=== PATIENT | female | born 1970 | race Caucasian/White ===

== ENCOUNTER 2017-12-13 15:48 | Emergency (ER) | payer OTHER ==
--- OUTSIDE RECORDS SUMMARY | 2017-12-13 15:50 | XMS REPORT ---
:1970 Author Organization eClinicalWorks Care Team Providers Name Role Phone Blanchard, [facility] Provider Role Unavailable Allergies, Adverse Reactions, Alerts Substance Reaction Event Type N.K.D.A. Info Not Available Non Drug Allergy Problems Problem Type Condition Code Onset Dates Condition Status Assessment Other chronic pain G89.29 Active Assessment Fibromyalgia M79.7 Active Assessment Low back pain M54.5 Active Problem Fibromyalgia M79.7 Active Problem Hematochezia K92.1 Active Problem Low back pain M54.5 Active Problem Chronic GERD K21.9 Active Problem Bilateral leg paresthesia R20.2 Active Problem Other chronic pain G89.29 Active Problem Urinary incontinence, unspecified R32 Active type Assessment Bilateral leg paresthesia R20.2 Active Assessment Urinary incontinence, unspecified R32 Active type Assessment Hematochezia K92.1 Active Assessment Chronic GERD K21.9 Active Medications Medication Code Code Instructions Start End Date Status Dosage System Date Multivitamin ND 72255787559 - Orally Active not defined BC Headache [facility] 64612769729 325-16-95 MG Active not Orally defined Gabapentin ND 31864631528 100 MG Orally December 05, Active 1 capsule Three times a 2017 day Results No Known Results Summary Purpose eClinicalWorks Submission
[2017-12-13] MEDS ORDERED: LORazepam 2 MG/ML VIAL ONE (16:50)
[2017-12-13 16:51] LABS: Absolute Lymphocytes (CBC) 3.8 K/uL (0.7-4.9); Absolute Monocytes 0.4 K/uL (0.1-1.3); Absolute Neutrophil 6.3 K/uL (1.8-8.0); Basophils % 1.2 % (0-1.3); Eosinophils % 0.3 % (0-4.4); Hematocrit 42.7 % (36.0-45.0); Lymphocytes % 35.8 % (15.3-44.8); MCH 25.2 pg (27.0-35.0); MCV 80.2 fL (80-100); MPV 8.3 fL (7.6-11.3); Monocytes % 3.8 % (3.3-12.3); RBC Red Blood Cell Count 5.32 M/uL (3.86-4.86)
[2017-12-13 16:53] LABS: Protime INR 0.91
--- NOTE | 2017-12-13 16:53 | EKG ---
Test Date: 2017-12-13 Test Time: 16:31:40 Reimbursement Director: MARIAN MEASUREMENT RESULTS: Intervals: Rate: 62 KS: 116 QRSD: 82 QT: 456 QTc: 462 [place]: P: 28 KS: 116 QRS: 64 T: 49 INTERPRETIVE STATEMENTS: Normal sinus rhythm Normal ECG No previous ECG available for comparison Electronically Signed On 12-13-17 16:52:19 CDT by Dane Thao
[2017-12-13 16:57] LABS: Urine Blood NEGATIVE (NEG); Urine Glucose NEGATIVE (NEG); Urine Protein NEGATIVE (NEG); Urine Specific Gravity 1.015 (1.005-1.030); Urine pH 8.5 (5.0-7.0)
[2017-12-13 16:58] LABS: Urine Specific Gravity 1.015 (1.005-1.030)
--- NOTE | 2017-12-13 17:18 | RAD REPORT ---
EXAM DESCRIPTION: RAD - Chest Single View - 12/13/2017 5:03 pm CLINICAL HISTORY: Dyspnea, shortness of breath COMPARISON: None. TECHNIQUE: AP portable chest image was obtained 1649 hours . FINDINGS: Lungs are clear. Heart and vasculature are normal. No measurable pleural effusion and no p neumothorax. No gross bony abnormality seen. No acute aortic findings suspected. IMPRESSION: No acute cardiopulmonary process.
[2017-12-13 17:26] LABS: ALT/SGPT 35 U/L (12-78); AST/SGOT 19 U/L (15-37); Albumin 3.8 g/dL (3.4-5.0); Alkaline Phosphatase 96 U/L (45-117); BUN Blood Urea Nitrogen 7 mg/dL (7-18); Bicarbonate 21 mmol/L (21-32); Bilirubin Direct < 0.1 mg/dL (0-0.2); Bilirubin Total 0.2 mg/dL (0.2-1.0); Glucose Level 89 mg/dL (74-106); NT PRO-BNP 321 pg/mL (<125); Potassium 3.7 mmol/L (3.5-5.1); Protein, Total 7.7 g/dL (6.4-8.2); Sodium Level 141 mmol/L (136-145)
--- NOTE | 2017-12-13 19:10 | EDPHYS ---
Physician Documentation [facility] Name: Edna Hoang Age: 47 yrs Sex: Female : 1970 Arrival Date: 12/13/2017 Time: 15:52 Bed 8 Private MD: ED Physician Kennedy Roy HPI: 12/13 16:42 This 47 yrs old Female presents to ER via EMS with complaints of Shortness Of jr8 Breath, Anxiety. 16:42 The patient has shortness of breath at rest. Onset: The symptoms/episode began/occurred jr8 gradually, 1 year(s) ago. Duration: The symptoms are continuous. The patient's shortness of breath is aggravated by walking, anxiety. Associated signs and symptoms: The patient has no apparent associated signs or symptoms. Severity of symptoms: At their worst the symptoms were moderate in the emergency department the symptoms are unchanged. The patient has experienced similar episodes in the past, several times. The patient has not recently seen a physician. Patient very anxious when questioning her. Stated that she had recent dispute with significant other that landed him in detention. Stated that she suffers from bad anxiety. Has been off of meds for a while. Feels as if she cannot catch breath. Has not seen anyone for problem because she had not had insurance for the longest time. 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 - Social history:: Smoking status: Patient uses tobacco products, smokes one-half pack cigarettes per day. - Ebola Screening: : No symptoms or risks identified at this time. ROS: 16:42 Eyes: Negative for injury, pain, redness, and discharge, ENT: Negative for injury, jr8 pain, and discharge, Neck: Negative for injury, pain, and swelling, Cardiovascular: Negative for chest pain, palpitations, and edema, Abdomen/GI: Negative for abdominal pain, nausea, vomiting, diarrhea, and constipation, Back: Negative for injury and pain, MS/Extremity: Negative for injury and deformity, Skin: Negative for injury, rash, and discoloration, Neuro: Negative for headache, weakness, numbness, tingling, and seizure. 16:42 Respiratory: Positive for dyspnea on exertion, shortness of breath, Negative for cough, hemoptysis, orthopnea, sputum production, wheezing. 16:42 Psych: Positive for anxiety, Negative for depression, drug dependence, alcohol dependence, auditory hallucinations, visual hallucinations, homicidal ideation, insomnia, suicide gesture, suicidal ideation. Exam: 16:53 Eyes: Pupils equal round and reactive to light, extra-ocular motions intact. Lids and jr8 lashes normal. Conjunctiva and sclera are non-icteric and not injected. Cornea within normal limits. Periorbital areas with no swelling, redness, or edema. ENT: Nares patent. No nasal discharge, no septal abnormalities noted. Tympanic membranes are normal and external auditory canals are clear. Oropharynx with no redness, swelling, or masses, exudates, or evidence of obstruction, uvula midline. Mucous membranes moist. Neck: Trachea midline, no thyromegaly or masses palpated, and no cervical lymphadenopathy. Supple, full range of motion without nuchal rigidity, or vertebral point tenderness. No Meningismus. Cardiovascular: Regular rate and rhythm with a normal S1 and S2. No gallops, murmurs, or rubs. Normal PMI, no JVD. No pulse deficits. Abdomen/GI: Soft, non-tender, with normal bowel sounds. No distension or tympany. No guarding or rebound. No evidence of tenderness throughout. Back: No spinal tenderness. No costovertebral tenderness. Full range of motion. Skin: Warm, dry with normal turgor. Normal color with no rashes, no lesions, and no evidence of cellulitis. MS/ Extremity: Pulses equal, no cyanosis. Neurovascular intact. Full, normal range of motion. Neuro: Awake and alert, GCS 15, oriented to person, place, time, and situation. Cranial nerves II-XII grossly intact. Motor strength 5/5 in all extremities. Sensory grossly intact. Cerebellar exam normal. Normal gait. 16:53 Respiratory: the patient does not display signs of respiratory distress, Respirations: tachypnea, that is mild, Breath sounds: are clear throughout, no bronchial sounds, no decreased breath sounds, no rales, rhonchi, no stridor, no wheezing. 16:53 Psych: Behavior/mood is anxious, Affect is animated, Oriented to person, place, time, Patient has no thoughts/intents to harm self or others. Judgement / Insight is normal. Memory is normal. Delusions/hallucinations are not present. 16:53 ECG was reviewed by the Attending Physician. jr8 Vital Signs: 15:55 BP 146 / 105; Pulse 72; Resp 30; Temp 97.8; Pulse Ox 100% on R/A; Weight 91.63 kg; ph Height 5 ft. 3 in. (160.02 cm); 16:58 BP 150 / 98; Pulse 61; Resp 24; Pulse Ox 100% on R/A; ph 19:20 BP 148 / 99; Pulse 64; Resp 20; Temp 97.9; Pulse Ox 100% on R/A; Pain 0/10; aa5 15:55 Body Mass Index 35.78 (91.63 kg, 160.02 cm) ph MDM: 15:57 Patient medically screened. jr8 19:05 Data reviewed: vital signs, nurses notes, lab test result(s), EKG, radiologic studies, jr8 plain films, and as a result, I will discharge patient. Data interpreted: Pulse oximetry: on room air is 100 %. Interpretation: normal. Counseling: I had a detailed discussion with the patient and/or guardian regarding: the historical points, exam findings, and any diagnostic results supporting the discharge/admit diagnosis, lab results, radiology results, the need for outpatient follow up, a family practitioner, to return to the emergency department if symptoms worsen or persist or if there are any questions or concerns that arise at home. Response to treatment: the patient's symptoms have markedly improved after treatment. ED course: Discussed with patient that there were no acute findings on imaging and labs. Most likely her anxiety that has been causing the shortness of breath. Ativan had seemed to help tremendously. Will put on medication for at home and needs to f/u with PCP. Patient happy and will follow up . 12/13 16:24 Order name: Basic Metabolic Panel; Complete Time: 18:55 [facility] 12/13 16:24 Order name: CBC with Diff; Complete Time: 16:55 [facility] 12/13 16:24 Order name: LFT's; Complete Time: 18:55 [facility] 12/13 16:24 Order name: Magnesium; Complete Time: 18:55 [facility] 12/13 16:24 Order name: NT PRO-BNP; Complete Time: 18:55 [facility] 12/13 16:24 Order name: PT-INR; Complete Time: 16:55 12/13 16:24 Order name: Troponin (emerg Dept Use Only); Complete Time: 18:12/13 16:24 Order name: XRAY Chest (1 view); Complete Time: 18:55 12/13 16:24 Order name: EKG; Complete Time: 16:24 12/13 16:24 Order name: Cardiac monitoring; Complete Time: 17:01 12/13 16:24 Order name: DD; Complete Time: 16:12/13 16:36 Order name: Urine Dipstick--Ancillary (enter results); Complete Time: 18:55 12/13 16:37 Order name: Urine --Ancillary (enter results); Complete Time: 18:55 12/13 16:24 Order name: EKG - Nurse/Tech; Complete Time: 16:12/13 16:24 Order name: IV Saline Lock; Complete Time: 16:12/13 16:24 Order name: Labs collected and sent; Complete Time: 16:12/13 16:24 Order name: O2 Per Protocol; Complete Time: 16:12/13 16:24 Order name: O2 Sat Monitoring; Complete Time: 16:12/13 16:24 Order name: Urine Dipstick-Ancillary (obtain specimen); Complete Time: 16:34 jr8 EC:53 Rate is 62 beats/min. Rhythm is regular, Normal Sinus Rhythm. QRS [place] is Normal. [place] jr8 interval is normal at 116 msec. QRS interval is normal at 82 msec. QT interval is normal at 462 msec. No Q waves. T waves are Normal. No ST changes noted. Clinical impression: Normal ECG. Interpreted by me. Reviewed by me. Administered Medications: 16:56 Drug: Ativan 1 mg Route: IVP; Site: right antecubital; ph 19:17 Follow up: Response: No adverse reaction; Marked relief of symptoms; Anxiety decreased aa5 Disposition: 12/14 06:51 Co-signature as Attending Physician, Kennedy Roy MD I agree with the assessment and uyen plan of care. Disposition: 12/13/17 19:09 Discharged to Home. Impression: Panic disorder [episodic paroxysmal anxiety] without agoraphobia. - Condition is Stable. - Discharge Instructions: Panic Attacks. - Prescriptions for Hydroxyzine HCl 50 mg Oral Tablet - take 1 tablet by ORAL route every 8 hours As needed; 20 tablet. - Medication Reconciliation Form, Thank You Letter, Antibiotic Education, Prescription Opioid Use form. - Follow up: Private Physician; When: 2 - 3 days; Reason: Recheck today's complaints, Continuance of care, Re-evaluation by your physician. - Problem is new. - Symptoms have improved. Signatures: Dispatcher [employer] EDMS Kennedy Roy MD MD cha Calderon, Audri RN RN aa5 Jc Kolb, PA PA jr8 Madelyn Vazquez RN RN tl1 Elda Cortes RN RN ph Corrections: (The following items were deleted from the chart) 12/13 19:21 19:09 12/13/2017 19:09 Discharged to Home. Impression: Panic disorder [episodic aa5 paroxysmal anxiety] without agoraphobia. Condition is Stable. Forms are Medication Reconciliation Form, Thank You Letter, Antibiotic Education, Prescription Opioid Use. Follow up: Private Physician; When: 2 - 3 days; Reason: Recheck today's complaints, Continuance of care, Re-evaluation by your physician. Problem is new. Symptoms have improved. jr8 19:33 19:21 12/13/2017 19:09 Discharged to Home. Impression: Panic disorder [episodic tl1 paroxysmal anxiety] without agoraphobia. Condition is Stable. Discharge Instructions: Panic Attacks. Prescriptions for Hydroxyzine HCl 50 mg Oral Tablet - take 1 tablet by ORAL route every 8 hours As needed; 20 tablet. and Forms are Medication Reconciliation Form, Thank You Letter, Antibiotic Education, Prescription Opioid Use. Follow up: Private Physician; When: 2 - 3 days; Reason: Recheck today's complaints, Continuance of care, Re-evaluation by your physician. Problem is new. Symptoms have improved. aa5
--- NOTE | 2017-12-13 19:10 | ER ---
Nurse's Notes [facility] Name: Edna Hoang Age: 47 yrs Sex: Female : 1970 Arrival Date: 12/13/2017 Time: 15:52 Bed 8 Private MD: Diagnosis: Panic disorder [episodic paroxysmal anxiety] without agoraphobia Presentation: 12/13 15:52 Presenting complaint: EMS states: Called for c/o SOB, pt anxious on scene, reports hx ph of anxiety, states that she becomes SOB w/ ambulation, 99% RA, ET 10-11, BP 148/104, HR 86. Transition of care: patient was not received from another setting of care. Onset of symptoms was December 13, 2017. Risk Assessment: Do you want to hurt yourself or someone else? Patient reports no desire to harm self or others. Initial Sepsis Screen: Does the patient meet any 2 criteria? No. Patient's initial sepsis screen is negative. Does the patient have a suspected source of infection? No. Patient's initial sepsis screen is negative. Care prior to arrival: Glucose check: 108. 15:52 Method Of Arrival: EMS: [facility] ph 15:52 Acuity: YANETH 3 ph Triage Assessment: 19:18 General: Appears in no apparent distress. comfortable, Behavior is calm, cooperative, aa5 appropriate for age. Respiratory: Onset: The symptoms/episode began/occurred the patient reports symptoms have resolved. 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 - Social history:: Smoking status: Patient uses tobacco products, smokes one-half pack cigarettes per day. - Ebola Screening: : No symptoms or risks identified at this time. Screenin:56 Abuse screen: Denies threats or abuse. Denies injuries from another. Nutritional ph screening: No deficits noted. Tuberculosis screening: No symptoms or risk factors identified. Fall Risk None identified. Assessment: 15:58 General: Appears in no apparent distress. uncomfortable, Behavior is cooperative, ph anxious, Denies fever, feeling ill. Pain: Complains of pain in "all over" reports hx of fibromyalgia. Neuro: Level of Consciousness is awake, alert, obeys commands, Oriented to person, place, time, situation. Cardiovascular: Reports shortness of breath, Denies chest pain, nausea, vomiting, Capillary refill < 3 seconds Patient's skin is warm and dry. Respiratory: Reports shortness of breath on exertion Airway is patent Respiratory effort is even, Respiratory pattern is tachypnea Breath sounds are clear bilaterally. Denies cough. GI: No signs and/or symptoms were reported involving the gastrointestinal system. : No signs and/or symptoms were reported regarding the genitourinary system. Derm: Skin is intact, is healthy with good turgor, Skin is pink, warm \\T\\ dry. Musculoskeletal: Circulation, motion, and sensation intact. Range of motion: intact in all extremities. 16:59 Reassessment: Patient appears in no apparent distress at this time. Patient and/or ph family updated on plan of care and expected duration. Pain level reassessed. Patient is alert, oriented x 3, equal unlabored respirations, skin warm/dry/pink. Pt resting quietly, awaiting lab and radiology results, family at bedside. 19:17 Reassessment: Patient and/or family updated on plan of care and expected duration. Pain aa5 level reassessed. Patient is alert, oriented x 3, equal unlabored respirations, skin warm/dry/pink. Patient states feeling better. Patient states symptoms have improved. Cardiovascular: Rhythm is sinus rhythm. Vital Signs: 15:55 BP 146 / 105; Pulse 72; Resp 30; Temp 97.8; Pulse Ox 100% on R/A; Weight 91.63 kg; ph Height 5 ft. 3 in. (160.02 cm); 16:58 BP 150 / 98; Pulse 61; Resp 24; Pulse Ox 100% on R/A; ph 19:20 BP 148 / 99; Pulse 64; Resp 20; Temp 97.9; Pulse Ox 100% on R/A; Pain 0/10; aa5 15:55 Body Mass Index 35.78 (91.63 kg, 160.02 cm) ph ED Course: 15:52 Patient arrived in ED. ph 15:55 Triage completed. ph 15:57 [facility] jr8 15:57 Kennedy Roy MD is Attending Physician. jr8 15:57 Arm band placed on. ph 15:58 Patient has correct armband on for positive identification. Bed in low position. Call ph light in reach. Side rails up X 1. Pulse ox on. NIBP on. Warm blanket given. 16:01 Inserted saline lock: 20 gauge in right antecubital area, using aseptic technique. ph Blood collected. 16:37 EKG done, by product safety technician. reviewed by Jc ROBINS. 3 16:46 Elda Cortes, RN is Primary Nurse. ph 17:00 X-ray completed. Portable x-ray completed in exam room. Patient tolerated procedure kc2 well. 17:00 XRAY Chest (1 view) In Process Unspecified. EDMS 19:16 No provider procedures requiring assistance completed. IV discontinued, intact, aa5 bleeding controlled, No redness/swelling at site. Pressure dressing applied. Administered Medications: 16:56 Drug: Ativan 1 mg Route: IVP; Site: right antecubital; ph 19:17 Follow up: Response: No adverse reaction; Marked relief of symptoms; Anxiety decreased aa5 Outcome: 19:09 Discharge ordered by . danae 19:18 Discharged to home ambulatory. aa5 19:18 Condition: improved 19:18 Discharge instructions given to patient, Instructed on discharge instructions, follow up and referral plans. medication usage, Demonstrated understanding of instructions, follow-up care, medications, Prescriptions given X 1. 19:21 Patient left the ED. aa5 19:33 Patient left the ED. tl1 Signatures: Dispatcher [employer] EDWI Zohra Jean RN BEBETO aaJc Guadalupe PA PA jr8 Madelyn Vazquez RN RN tl1 Elda Cortes, BEBETO RN Perla Murry 2 Maggy Brady 3
== END 2017-12-13 19:33 | disposition home or self-care (01) ==
LOC: ER 15:48
DX: F41.0 Panic disorder [episodic paroxysmal anxiety] (principal); F17.210 Nicotine dependence, cigarettes, uncomplicated
CPT/HCPCS: 36415; 71045; 80048; 80076; 81003; 81025; 83735; 83880; 84484; 85025; 85379; 85610; 93005; 96374; 99285

== ENCOUNTER 2018-03-15 19:52 | Inpatient (IN) | payer OTHER ==
--- OUTSIDE RECORDS SUMMARY | 2018-03-15 19:54 | XMS REPORT ---
:1970 Author Organization eClinicalWorks Care Team Providers Name Role Phone Blanchard, [facility] Provider Role Unavailable Allergies, Adverse Reactions, [...] Date Status Dosage System Date Multivitamin ND 76486818711 - Orally Active not defined BC Headache [facility] 00210064249 325-16-95 MG Active not Orally defined Gabapentin ND 53742804712 100 MG Orally December 05, Active 1 capsule Three times a 2017 day Results No Known Results Summary Purpose eClinicalWorks Submission
[2018-03-15] MEDS ORDERED: ONDANSETRON 4 MG/2 ML VIAL ONE (20:32)
[2018-03-15] MEDS ORDERED: NA CHLORIDE 0.9% 1,000 ML ONE (20:32)
[2018-03-15] MEDS ORDERED: MORPHINE 4 MG/ML SYR ONE ×2 (20:32→21:29)
[2018-03-15 21:11] LABS: Absolute Monocytes 0.5 K/uL (0.1-1.3); Absolute Neutrophil 7.5 K/uL (1.8-8.0); Hematocrit 37.1 % (36.0-45.0); Lymphocytes % 26.6 % (15.3-44.8); MCH 27.5 pg (27.0-35.0); MCV 82.6 fL (80-100); MPV 8.5 fL (7.6-11.3); Monocytes % 4.8 % (3.3-12.3); RBC Red Blood Cell Count 4.49 M/uL (3.86-4.86)
[2018-03-15 21:22] LABS: ALT/SGPT 37 U/L (12-78); AST/SGOT 37 U/L (15-37); Albumin 2.4 g/dL (3.4-5.0); Alkaline Phosphatase 117 U/L (45-117); BUN Blood Urea Nitrogen 3 mg/dL (7-18); Bicarbonate 28 mmol/L (21-32); Bilirubin Direct < 0.1 mg/dL (0-0.2); Bilirubin Total 0.1 mg/dL (0.2-1.0); Glucose Level 98 mg/dL (74-106); Lipase 499 U/L (73-393); Protein, Total 6.9 g/dL (6.4-8.2); Sodium Level 142 mmol/L (136-145)
[2018-03-15 21:24] LABS: Potassium 2.8 mmol/L (3.5-5.1)
[2018-03-15] MEDS ORDERED: POTASSIUM 25 MEQ EFFERV TAB ONE (21:47)
[2018-03-15] MEDS ORDERED: KCL 20 MEQ/100 mL IVPB 20 MEQ/100 ML BAG IV ONE (21:47)
[2018-03-15] MEDS ORDERED: NA CHLORIDE 0.9% 500 ML ONE (21:49)
[2018-03-15 22:20] LABS: Urine Blood NEGATIVE (NEG); Urine Glucose NEGATIVE (NEG); Urine Protein NEGATIVE (NEG); Urine Specific Gravity >1.030 (1.005-1.030)
[2018-03-16] MEDS ORDERED: VANCOMYCIN 1 GM/250 ML BAG ONE (00:02)
[2018-03-16] MEDS ORDERED: MORPHINE 4 MG/ML SYR ONE (00:02)
--- NOTE | 2018-03-16 00:29 | EDPHYS ---
Physician Documentation [facility] Name: Edna Hoang Age: 47 yrs Sex: Female : 1970 Arrival Date: 03/15/2018 Time: 19:53 Bed 30 Private MD: ED Physician Kennedy Roy HPI: 03/15 20:20 This 47 yrs old Female presents to ER via Ambulatory with complaints of Boil, cp Leg Pain, SWELLING ALL OVER. 20:20 The patient presents with abdominal pain in the lower abdomen. cp 20:20 Onset: The symptoms/episode began/occurred 2 week(s) ago. The symptoms do not radiate. cp Associated signs and symptoms: Pertinent negatives: nausea, vomiting, and diarrhea, blood in stools, chest pain, constipation, fever. Severity of pain: in the emergency department the pain is unchanged despite home interventions. 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 - Social history:: Smoking status: Patient uses tobacco products, smokes one-half pack cigarettes per day. - Ebola Screening: : Patient denies travel to an Ebola-affected area in the 21 days before illness onset. ROS: 20:30 Constitutional: Negative for body aches, chills, fever, poor PO intake. cp 20:30 Eyes: Negative for injury, pain, redness, and discharge. cp 20:30 ENT: Negative for drainage from ear(s), ear pain, sore throat, difficulty swallowing, difficulty handling secretions, hoarseness. 20:30 Cardiovascular: Negative for chest pain, palpitations. 20:30 Respiratory: Negative for cough, shortness of breath, wheezing. 20:30 Abdomen/GI: Positive for abdominal pain, Negative for nausea, vomiting, and diarrhea. 20:30 Skin: Positive for abscess, cellulitis, of the abdomen. 20:30 All other systems are negative. Exam: 20:35 Constitutional: The patient appears alert, awake, non-diaphoretic, non-toxic, well cp developed, well nourished, uncomfortable. 20:35 Head/Face: Normocephalic, atraumatic. cp 20:35 Eyes: Periorbital structures: appear normal, Conjunctiva: normal, no exudate, no injection, Sclera: no appreciated abnormality, Lids and lashes: appear normal, bilaterally. 20:35 ENT: External ear(s): are unremarkable, Nose: is normal, Mouth: Lips: moist, Oral mucosa: pink and intact, moist, Posterior pharynx: is normal, airway is patent, no erythema, no exudate. 20:35 Chest/axilla: Inspection: normal, Palpation: is normal, no crepitus, no tenderness. 20:35 Cardiovascular: Rate: normal, Rhythm: regular. 20:35 Respiratory: the patient does not display signs of respiratory distress, Respirations: normal, no use of accessory muscles, no retractions, no splinting, no tachypnea, labored breathing, is not present, Breath sounds: are clear throughout, no decreased breath sounds, no stridor, no wheezing. 20:35 Abdomen/GI: Inspection: obese Bowel sounds: active, all quadrants, Palpation: soft, in all quadrants, severe abdominal tenderness, in the right lower quadrant and left lower quadrant, voluntary guarding, is elicited in the right lower quadrant and left lower quadrant. 20:35 Skin: abscess, that is moderate sized, of the right lower abdomen, with surrounding cellulitis, that is severe. 20:35 Neuro: Orientation: to person, place \T\ time. Mentation: lucid, able to follow commands, Cerebellar function: is grossly normal, Motor: moves all fours, strength is normal, Sensation: no obvious gross deficits. Vital Signs: 19:59 BP 145 / 103; Pulse 92; Resp 20; Temp 98.0; Pulse Ox 100% on R/A; Weight 91.63 kg (R); aj1 Height 5 ft. 3 in. (160.02 cm) (R); Pain 10/10; 21:13 BP 141 / 99; Pulse 84; Pulse Ox 98% on R/A; rv 23:47 BP 148 / 109; Pulse 96; Pulse Ox 98% on R/A; rv 03/16 03:03 BP 136 / 90; Pulse 73; Pulse Ox 97% on R/A; rv 03/15 19:59 Body Mass Index 35.78 (91.63 kg, 160.02 cm) aj1 MDM: 09/27 20:04 Patient medically screened. 21:00 Differential diagnosis: sepsis, cellulitis, MRSA, abscess. 03/16 00:25 Data reviewed: vital signs, nurses notes, lab test result(s), radiologic studies, CT cp scan, and as a result, I will admit patient. 00:25 Counseling: I had a detailed discussion with the patient and/or guardian regarding: the cp historical points, exam findings, and any diagnostic results supporting the discharge/admit diagnosis, lab results, radiology results, the need for further work-up and treatment in the hospital. 00:25 Physician consultation: Yomaira Jo MD was contacted at 00:25, regarding admission, cp to the medical/surgical unit. patient's condition, would like consultation with Dr. Rose. 03/15 20:14 Order name: Basic Metabolic Panel 03/15 20:14 Order name: CBC with Diff; Complete Time: 21:49 03/15 21:49 Interpretation: Normal except: WBC 11.2; PLT 464; RDW 16.5. 03/15 20:14 Order name: Creatinine for Radiology; Complete Time: 21:49 03/15 20:14 Order name: Hepatic Function; Complete Time: 21:49 03/15 22:22 Interpretation: Normal except: BILIT 0.1; ALB 2.4; GLOB 4.5; A/G 0.5. 03/15 20:14 Order name: Lipase; Complete Time: 21:49 03/15 21:50 Interpretation: Abnormal: LIP 499. 03/15 20:14 Order name: Blood Culture Adult (2) 03/15 20:14 Order name: Procalcitonin; Complete Time: 21:49 03/15 21:50 Interpretation: Within normal limits: Procalcitonin < 0.05. 03/15 20:15 Order name: Basic Metabolic Panel; Complete Time: 21:49 EDMS 03/15 22:23 Interpretation: Normal except: K 2.8; BUN 3; GFR 77; CA 8.0. 03/15 20:54 Order name: CT Abd/Pelvis - W/Contrast cp 03/15 22:08 Order name: Urine Dipstick--Ancillary (enter results); Complete Time: 22:22 mw2 03/15 22:08 Order name: Urine --Ancillary (enter results); Complete Time: 22:22 mw2 03/15 20:14 Order name: IV Saline Lock; Complete Time: 20:43 cp 03/15 20:14 Order name: Labs collected and sent; Complete Time: 20:43 cp 03/16 00:47 Order name: CONS Pharmacy Consult EDMS Administered Medications: 03/15 20:42 Drug: morphine 4 mg Route: IVP; Site: right forearm; rv 20:42 Drug: Zofran 4 mg Route: IVP; Site: right forearm; rv 20:42 Drug: NS 0.9% 1000 ml Route: IV; Rate: 1 bolus; Site: right forearm; rv 03/16 00:21 Follow up: IV Status: Completed infusion rv 03/15 21:25 Drug: morphine 4 mg Route: IVP; Site: right forearm; rv 03/16 00:21 Follow up: Response: No adverse reaction rv 03/15 21:53 Drug: Potassium Effervescent Tablet 50 mEq Route: PO; rv 03/16 00:20 Follow up: Response: No adverse reaction rv 03/15 21:54 Drug: Potassium Chloride 20 mEq Route: IV; Rate: calculated rate; Site: right rv antecubital; 03/16 00:21 Follow up: IV Status: Completed infusion rv 00:02 Drug: vancoMYCIN 1 grams Route: IVPB; Infused Over: 2 hrs; Site: right antecubital; rv 02:24 Follow up: IV Status: Completed infusion rv 00:02 Drug: morphine 4 mg Route: IVP; Site: right antecubital; rv 00:20 Follow up: Response: No adverse reaction rv 02:24 Drug: Zosyn 3.375 grams Route: IVPB; Infused Over: 60 mins; Site: right antecubital; rv 03:02 Follow up: IV Status: Infusion continued upon admission rv Disposition: 07:25 Co-signature as Attending Physician, Kennedy Roy MD I agree with the assessment and uyen plan of care. Disposition: 03/16/18 00:28 Hospitalization ordered by Yomaira Jo for Inpatient Admission. Preliminary diagnosis are Cellulitis of abdominal wall, Cutaneous abscess of abdominal wall. - Bed requested for Telemetry/MedSurg (Inpatient). - Status is Inpatient Admission. rv - Condition is Stable. - Problem is new. - Symptoms have improved. UTI on Admission? No Signatures: Dispatcher [employer] EDLeigh Ann Bentley RN RN aj1 Melissa Marquez RN RN Kennedy Watkins MD MD cha Page, Corey, PA PA cp Jose Antonio Cuellar, RN RN rv Corrections: (The following items were deleted from the chart) 03/15 20:53 20:53 This 47 yrs old Female presents to ER via Ambulatory with complaints of cp Boil, Leg Pain, SWELLING ALL OVER. cp 22:23 22:22 Normal except: K 2.8; BUN 3; GFR 77. cp cp 03/16 00:34 00:28 Hospitalization Ordered by Yomaira Jo MD for Inpatient Admission. Preliminary diagnosis is Cellulitis of abdominal wall; Cutaneous abscess of abdominal wall. Bed requested for Telemetry/MedSurg (Inpatient). Status is Inpatient Admission. Condition is Stable. Problem is new. Symptoms have improved. UTI on Admission? No. cp 03:04 00:34 03/16/2018 00:28 Hospitalization Ordered by Yomaira Jo MD for Inpatient rv Admission. Preliminary diagnosis is Cellulitis of abdominal wall; Cutaneous abscess of abdominal wall. Bed requested for Telemetry/MedSurg (Inpatient). Status is Inpatient Admission. Condition is Stable. Problem is new. Symptoms have improved. UTI on Admission? No. mw
--- NOTE | 2018-03-16 00:29 | ER ---
Nurse's Notes [facility] Name: Edna Hoang Age: 47 yrs Sex: Female : 1970 Arrival Date: 03/15/2018 Time: 19:53 Bed 30 Private MD: Diagnosis: Cellulitis of abdominal wall;Cutaneous abscess of abdominal wall Presentation: 03/15 19:57 Presenting complaint: Patient states: She has had 2 abscesses on her stomach for the aj1 past 2 weeks. A week ago the pain started getting worse and the swelling began increasing 2 days ago. Reports chills. Redness noted to entire lower abdomen. Transition of care: patient was not received from another setting of care. Onset of symptoms was February 2018. Risk Assessment: Do you want to hurt yourself or someone else? Patient reports no desire to harm self or others. Initial Sepsis Screen: Does the patient meet any 2 criteria? HR > 90 bpm. No. Patient's initial sepsis screen is negative. Does the patient have a suspected source of infection? Yes: Skin breakdown/wound Acute abdominal pain. Care prior to arrival: None. 19:57 Method Of Arrival: Ambulatory aj 19:57 Acuity: YANETH 3 aj1 Triage Assessment: 19:59 General: Appears uncomfortable, Behavior is anxious, crying, restless. Pain: Complains aj1 of pain in abdomen Pain currently is 10 out of 10 on a pain scale. Neuro: Level of Consciousness is awake, alert, obeys commands. Cardiovascular: Patient's skin is warm and dry. Respiratory: Airway is patent Respiratory effort is even, unlabored, Respiratory pattern is regular, symmetrical. 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 - Social history:: Smoking status: Patient uses tobacco products, smokes one-half pack cigarettes per day. - Ebola Screening: : Patient denies travel to an Ebola-affected area in the 21 days before illness onset. Screenin:44 Abuse screen: Denies threats or abuse. Denies injuries from another. Nutritional rv screening: No deficits noted. Tuberculosis screening: No symptoms or risk factors identified. Fall Risk None identified. Assessment: 20:42 General: Appears in no apparent distress. comfortable, Behavior is agitated, crying. rv Pain: Complains of pain in abdomen. Neuro: Level of Consciousness is awake, alert, obeys commands, Oriented to person, place, time, situation. Cardiovascular: Capillary refill < 3 seconds. Respiratory: Airway is patent. GI: No signs and/or symptoms were reported involving the gastrointestinal system. : No signs and/or symptoms were reported regarding the genitourinary system. EENT: No signs and/or symptoms were reported regarding the EENT system. Derm: Skin is red, Wound noted abdomen Wound is abscess. 21:13 Reassessment: Patient appears in no apparent distress at this time. Patient and/or rv family updated on plan of care and expected duration. Pain level reassessed. Patient is alert, oriented x 3, equal unlabored respirations, skin warm/dry/pink. 23:47 Reassessment: Patient and/or family updated on plan of care and expected duration. Pain rv level reassessed. Patient is alert, oriented x 3, equal unlabored respirations, skin warm/dry/pink. Vital Signs: 19:59 BP 145 / 103; Pulse 92; Resp 20; Temp 98.0; Pulse Ox 100% on R/A; Weight 91.63 kg (R); aj1 Height 5 ft. 3 in. (160.02 cm) (R); Pain 10/10; 21:13 BP 141 / 99; Pulse 84; Pulse Ox 98% on R/A; rv 23:47 BP 148 / 109; Pulse 96; Pulse Ox 98% on R/A; rv 03/16 03:03 BP 136 / 90; Pulse 73; Pulse Ox 97% on R/A; rv 03/15 19:59 Body Mass Index 35.78 (91.63 kg, 160.02 cm) aj1 ED Course: 03/15 19:53 Patient arrived in ED. es 19:59 Triage completed. aj1 19:59 Arm band placed on Patient placed in an exam room. aj1 20:04 Kennedy Sandhu PA is PHCP. cp 20:04 Kennedy Roy MD is Attending Physician. cp 20:40 Inserted saline lock: 20 gauge in right forearm, using aseptic technique. Blood rv collected. 20:44 Patient has correct armband on for positive identification. Bed in low position. Call rv light in reach. Side rails up X 1. Adult w/ patient. Pulse ox on. NIBP on. 21:24 Notified Nurse Practitioner and/or Physician Police Patrol Lieutenant of a critical lab result(s), fc potassium of 2.8. 23:29 CT completed. Pt tolerated procedure poorly. Patient moved to CT via stretcher. Patient eh moved back from CT. 23:31 CT Abd/Pelvis - W/Contrast In Process Unspecified. EDMS 03/16 00:22 Basic Metabolic Panel Sent. rv 00:27 Yomaira Jo MD is Hospitalizing Provider. cp 03:04 No provider procedures requiring assistance completed. Patient admitted, IV remains in rv place. intact. Administered Medications: 03/15 20:42 Drug: morphine 4 mg Route: IVP; Site: right forearm; rv 20:42 Drug: Zofran 4 mg Route: IVP; Site: right forearm; rv 20:42 Drug: NS 0.9% 1000 ml Route: IV; Rate: 1 bolus; Site: right forearm; rv 03/16 00:21 Follow up: IV Status: Completed infusion rv 03/15 21:25 Drug: morphine 4 mg Route: IVP; Site: right forearm; rv 03/16 00:21 Follow up: Response: No adverse reaction rv 03/15 21:53 Drug: Potassium Effervescent Tablet 50 mEq Route: PO; rv 03/16 00:20 Follow up: Response: No adverse reaction rv 03/15 21:54 Drug: Potassium Chloride 20 mEq Route: IV; Rate: calculated rate; Site: right rv antecubital; 03/16 00:21 Follow up: IV Status: Completed infusion rv 00:02 Drug: vancoMYCIN 1 grams Route: IVPB; Infused Over: 2 hrs; Site: right antecubital; rv 02:24 Follow up: IV Status: Completed infusion rv 00:02 Drug: morphine 4 mg Route: IVP; Site: right antecubital; rv 00:20 Follow up: Response: No adverse reaction rv 02:24 Drug: Zosyn 3.375 grams Route: IVPB; Infused Over: 60 mins; Site: right antecubital; rv 03:02 Follow up: IV Status: Infusion continued upon admission rv Outcome: 00:28 Decision to Hospitalize by Provider. cp 03:02 Admitted to Med/surg accompanied by tech, via stretcher, room 207, with chart, Report rv called to RICHARD TATE 03:02 Condition: improved 03:02 Instructed on the need for admit. 03:04 Patient left the ED. rv Signatures: Dispatcher [employer] Leigh Ann Schmitt, RN RN aj1 Madyson Bellamy Ervin eh Chretien, Felicia, RN RN fc Kennedy Sandhu PA PA cp Vicente, Ronaldo RN RN rv
[2018-03-16] MEDS ORDERED: PIPER/TAZO/NS 3.375gm 3.375 GM/100 ML BAG ONE (01:19)
[2018-03-16] MEDS: MORPHINE 4 MG/ML SYR IV PRN ×5 (03:35→22:26)
--- NOTE | 2018-03-16 05:39 | P.HP ---
Certification for Inpatient Patient admitted to: Inpatient With expected LOS: >2 Midnights Patient will require the following post-hospital care: None Practitioner: I am a practitioner with admitting privileges, knowledge of patient current condition, hospital course, and medical plan of care. Services: Services provided to patient in accordance with Admission requirements found in Title 42 Section 412.3 of the Code of Federal Regulations Patient History Date of Service: 03/16/18 Reason for admission: Abdominal wall abscess History of Present Illness: Patient is a 47-year-old female who came into the hospital with inflammation the scan on her right lower abdomen. On further evaluation she had an area that was red and looks to be an abscess. She has come into the emergency room because the pain was getting much worse. Her leave entire lower abdomen was erythematous on arrival. Had a CT of the abdomen and pelvis which revealed an abscess of the right lower quadrant of the abdomen. She will be admitted to the hospital for IV antibiotics along with surgical evaluation and pain control. She will be NPO after midnight for possible surgical evaluation. Allergies No Known Allergies Allergy (Verified 03/16/18 04:32) Home Medications: NK [No Home Meds] 03/16/18 - Past Medical/Surgical History -: Anxiety disorder Past Surgical History: Patient denies surgical history - Family History Father Family History: Reviewed- Non-Contributory Mother Family History: Reviewed- Non-Contributory - Social History Smoking Status: Current every day smoker Alcohol use: No CD- Drugs: No Review of Systems 10-point ROS is otherwise unremarkable Physical Examination - Vital Signs Temperature: 98.3 F Blood Pressure: 132/91 Pulse: 96 Respirations: 18 Pulse Ox (%): 99 - Physical Exam General: Alert, In no apparent distress, Oriented x3 HEENT: Atraumatic, PERRLA, Mucous membr. moist/pink, EOMI, Sclerae nonicteric Neck: Supple, 2+ carotid pulse no bruit, No LAD, Without JVD or thyroid abnormality Respiratory: Clear to auscultation bilaterally, Normal air movement Cardiovascular: Regular rate/rhythm, Normal S1 S2, No murmurs Gastrointestinal: Normal bowel sounds, Soft and benign, Non-distended, No tenderness Musculoskeletal: No tenderness Integumentary: Skin lesion, Tenderness/swelling, Erythema Neurological: Normal gait, Normal speech, Normal strength at 5/5 x4 extr, Normal tone, Sensation intact, Cranial nerves 3-12 intact, Normal affect Lymphatics: No axilla or inguinal lymphadenopathy - Studies Laboratory Data (last 24 hrs) 03/15/18 20:35: Creatinine 0.80 03/15/18 20:35: WBC 11.2 H, Hgb 12.4, Hct 37.1, Plt Count 464 H 03/15/18 20:35: Sodium 142, Potassium 2.8 L*, BUN 3 L, Creatinine 0.80, Glucose 98, Total Bilirubin 0.1 L, AST 37, ALT 37, Alkaline Phosphatase 117, Lipase 499 H Assessment & Plan - Problems (Diagnosis) (1) Abdominal wall abscess Current Visit: Yes Status: Acute (2) Anxiety disorder Current Visit: Yes Status: Acute (3) Leukocytosis Current Visit: Yes Status: Acute - Plan Plan: 1. IV hydration 2. NPO after midnight 3. Monitor lipase level 4. Surgical consultation for incision and debridement of abscess 5. IV antibiotics 6. Anxiolytics as needed 7. GI and DVT prophylaxis Discharge Plan: Home Plan to discharge in: Greater than 2 days - Advance Directives Does patient have a Living Will: No Does patient have a Durable POA for Healthcare: No - Code Status/Comfort Care Code Status Assessed: Yes Code Status: Full Code Critical Care: No Time Spent Managing PTS Care (In Minutes): 50
[2018-03-16] MEDS ORDERED: PIPER/TAZO/NS 3.375gm 3.375 GM/100 ML BAG IVPB SCH (06:00)
[2018-03-16] MEDS: ACETAMINOPHEN 500 MG TAB PO PRN ×2 (08:29→16:31)
--- NOTE | 2018-03-16 08:51 | RAD REPORT ---
EXAM DESCRIPTION: CT - Abdomen Pelvis W Contrast - 03/16/2018 1:58 am CLINICAL HISTORY: Lower abdominal pain, abdominal abscess and cellulitis A preliminary report was provided at the time of the study and reviewed prior to final report. COMPARISON: None. TECHNIQUE: Biphasic, helical CT imaging of the abdomen and pelvis was performed following 100 ml non -ionic IV contrast. Oral contrast was given. All CT scans are performed using dose optimization technique as appropriate and may include automated exposure control or mA/KV adjustment according to patient size. FINDINGS: Atelectasis changes are present with no acute finding. The liver, spleen, and pancreas show no suspicious findings. Gallbladder and biliary tree are also wi thout suspicious finding. Symmetric renal function is seen with no hydronephrosis or suspicious renal mass. No adrenal gland or urinary bladder abnormality. No dilated bowel loops or bowel wall thickening. No free air, free fluid or inflammatory stranding i n the peritoneal or retroperitoneal spaces. . No hernia, mass or bulky lymphadenopathy. Uterus and o varies show no suspicious findings. No suspicious bony findings. In the subcutaneous fatty tissues lower right pelvis there is a 7 centimeter area of ill-defined soft tissue attenuation. There is skin thickening in this region. No air in the soft tissues. No defined drainable abscess seen at this time. There is congestion and edema in the fat from skin surface down to the anterior abdominal wall. No involvement of the abdominal wall musculature identifiable. No int raperitoneal or retroperitoneal extension. IMPRESSION: Approximately 7 centimeter area of phlegmonous inflammatory change in the subcutaneous f atty tissues right lower quadrant. No clearly defined drainable fluid collection at this time. No air in the soft tissues. The cellulitis and infectious changes are limited to the skin and subcutaneous fatty tissues.
[2018-03-16] MEDS: PIPER/TAZO/NS 3.375gm 3.375 GM/100 ML BAG IVPB SCH ×2 (08:54→18:26)
[2018-03-16] MEDS ORDERED: COLLAGENASE 30 GM OINTMENT TOP ONE (08:59)
[2018-03-16] MEDS ORDERED: PROPOFOL 200 MG/20 ML VIAL IV ONE (09:21)
[2018-03-16] MEDS ORDERED: FENTANYL CITR 100 MCG/2 ML ONE (09:21)
[2018-03-16] MEDS ORDERED: LIDOCAINE 2% MPF 5 ML VIAL ONE (09:22)
[2018-03-16] MEDS ORDERED: MIDAZOLAM HCL 2 MG/2 ML INJ ONE (09:22)
[2018-03-16] MEDS ORDERED: ONDANSETRON HCL 40 MG/20 ML VIAL ONE (09:23)
[2018-03-16] MEDS ORDERED: Ringers Lactate 1,000 ML IV ONE (09:28)
--- NOTE | 2018-03-16 10:18 | P.OP ---
Preoperative diagnosis: Abscess and Cellulitis RLQ Abd Wall Postoperative diagnosis: same Primary procedure: I and D and Debridement RLQ Abdominal Wall Abscess Anesthesia: General Estimated blood loss: min Specimen: pus Findings: as above Complications: None Transferred to: Recovery Room Condition: Good
[2018-03-16] MEDS: MEPERIDINE HCL 50 MG/ML AMP ONE ×2 (10:40→10:47)
[2018-03-16] MEDS ORDERED: CHLORHEXIDINE GLUCO 4% 120 ML TOP SCH (11:00)
[2018-03-16 11:44] LABS: Albumin 2.3 g/dL (3.4-5.0); Bilirubin Total 0.3 mg/dL (0.2-1.0); Magnesium 1.7 mg/dL (1.8-2.4); Phosphorus 3.4 mg/dL (2.5-4.9); Potassium 3.2 mmol/L (3.5-5.1); Protein, Total 6.2 g/dL (6.4-8.2)
[2018-03-16 11:52] LABS: Absolute Lymphocytes (CBC) 1.8 K/uL (0.7-4.9); Absolute Monocytes 0.6 K/uL (0.1-1.3); Basophils % 0.4 % (0-1.3); Eosinophils % 0.4 % (0-4.4); Hematocrit 33.9 % (36.0-45.0); Lymphocytes % 15.5 % (15.3-44.8); MCV 82.9 fL (80-100); MPV 7.7 fL (7.6-11.3); Monocytes % 5.4 % (3.3-12.3); RBC Red Blood Cell Count 4.09 M/uL (3.86-4.86)
[2018-03-16] MEDS ORDERED: VANCOMYCIN/NS 1 gm 1 GM/250 ML BAG IVPB SCH (12:00)
[2018-03-16] MEDS: VANCOMYCIN 1.5 GM in NA CHLORIDE 0.9% 500 ML IVPB SCH (13:03)
--- NOTE | 2018-03-16 14:43 | PREOPCON ---
Date of Consultation: 03/16/2018 Reason: Abscess, right lower quadrant. History Of Present Illness: The patient is a 47-year-old female, and a very poor historian. States approximately 2 weeks ago, she was working in the yard and scratching herself following which she dev eloped some redness, swelling, pain, fever, minimal discharge and came to the emergency room yesterda y. She denies any sore throat, runny nose, cough, headaches, or dizziness. No chest pain. Review of Systems: Otherwise unremarkable. Past Medical History: Significant for significant anxiety disorder. She has been in the rehab for a ddiction. However, she does not know what she is addicted to, as I said, she is a very poor historia n. She denies any surgical history. Allergies: NO ALLERGIES. Social History: She does smoke and was counseled by the PCP. Family History: Noncontributory. Physical Examination: Vital Signs: Stable. She is afebrile. General: She is awake, alert, oriented x2. Head and Neck: Cranial nerves 2 through 12 are grossly within normal limits. No neck masses. No JV D. Throat clear. Neck is supple. Chest: Clear. Heart: S1, S2. Abdomen: Soft. She has a large pannus in the right lower quadrant. There is approximately a 20 x 2 0 cm area of erythema, edema, central fluctuance, and some necrosis in the center and warmth tenderne ss. Neuro: Nonfocal. Laboratory Data: White count was 11.2. Chemistry showed potassium of 2.8. She was treated for hypo kalemia and now 3.2. Procalcitonin was 0.05. Assessment: Abdominal wall abscess, cellulitis. Plan: Continue IV antibiotics. Sent to OR for incision, drainage, and debridement. The patient und erstands the risks, benefits, and alternatives and agrees to procedure. /MODL Voice ID: [id number] Report ID: [id number]
[2018-03-16] MEDS ORDERED: HOME MED 1 EA UNK (Omeprazole Magnesium [Prilosec Otc] 20 MG) PO SCH (16:30)
[2018-03-16] MEDS: PANTOPRAZOLE 40MG TABLET PO SCH (16:31)
--- NOTE | 2018-03-16 16:31 | PN ---
Date of Progress Note: 03/16/2018 Subjective: The patient is seen and examined. Chart reviewed and case discussed with RN and Dr. Rey cornejo. The patient does have psychiatric disorder, has been aggressive with the staff. Seems to have p oor help in education. Not understanding her treatment plan. The patient will be going for I and D today for her abscess. Review of Systems: Negative except as above. Medications: List reviewed. Objective: Vital Signs: Temperature 97.4, heart rate 76, blood pressure 121/76, respirations 16, O2 97% on 2 L via nasal cannula. General: Awake, alert, oriented x3. Mild distress. Ill-appearing female, obese. CV: S1, S2. No murmurs. Peripheral pulses present. Respiratory: Moving air well bilaterally. No wheezing or stridor. Gastrointestinal: Abdomen is tender to palpation, has erythema and induration, consistent with. [place] el sounds are hypoactive. Extremities: No clubbing, cyanosis, edema. Neurologic: Nonfocal. Laboratory Data: Sodium 143, potassium 3.2, chloride 107, CO2 31, BUN 2, creatinine 0.8, glucose 102 , calcium 7.8, phosphorus 3.4, magnesium 1.7, albumin 2.3. WBC 11.4, H and H 11.5, 33.9, platelets 4 38. Blood cultures and wound cultures pending. CT scan of the abdomen and pelvis personally reviewe d shows 7 cm area of phlegmonous inflammatory change in the subcutaneous fatty tissue, right lower qu adrant. No clear defined drainable fluid collection. of soft tissue cellulitis _ to skin and subcutaneous fatty tissue. Assessment: A 47-year-old female with; 1.Abdominal wall cellulitis and abscess status post incision and drainage. The patient was seen by Dr. Rose for the procedure. We will continue with IV antibiotics. Follow up on blood cultures and wound cultures. 2.Generalized anxiety disorder. 3.Obesity. BMI of 31. 4.Hypokalemia. We will replace and monitor. 5.Hypomagnesemia. We will replace and monitor. 6.Severe protein-calorie malnutrition. Albumin 2.3. Plan: As above. No signs of sepsis. White count is mildly elevated, however, procalcitonin is nega tive. The patient is not tachypneic or tachycardic. No fevers. Monitor closely. /JENNIFER Voice ID: [id number] Report ID: [id number]
[2018-03-16] MEDS: MAGNES/ALUMIN/SIMET 30ML UCUP PO PRN (21:15)
[2018-03-16] MEDS: MUPIROCIN 2% OINT 22GM TUBE TOP SCH (21:15)
--- NOTE | 2018-03-16 21:15 | OP ---
Date of Procedure: 03/16/2018 Surgeon: Nazario Rose MD Preoperative Diagnosis: Right lower quadrant abdominal wall abscess. Postoperative Diagnosis: Right lower quadrant abdominal wall abscess. Procedure: Incision, drainage, and debridement of right lower quadrant abdominal wall abscess. Estimated Blood Loss: Minimal. Specimen: Pus. Findings: As above. Anesthesia: General. Complications: None. Disposition: The patient tolerated the procedure in stable condition and taken to recovery in good g eneral condition. Procedure In Detail: The patient was brought to the OR and placed in supine position. General anest hesia was begun. The patient was prepped and draped in the usual sterile fashion. Marcaine 0.5% was infiltrated locally. A 15-blade was used to make approximately a 6 cm incision in the right lower q uadrant over the most fluctuant part of the abscess. Subcutaneous tissue divided. Pus under pressur e evacuated. Loculation broken up. Necrotic tissue debrided. Wound irrigated. Cultures done. Ble eding controlled with cautery. Wet-to-dry normal saline dressing change applied. The patient tolera leonardo the procedure in stable condition and taken to recovery in good general condition. CHELITA/MODWilberto Voice ID: [id number] Report ID: [id number]
[2018-03-17] MEDS: PIPER/TAZO/NS 3.375gm 3.375 GM/100 ML BAG IVPB SCH ×3 (00:08→16:39)
[2018-03-17] MEDS: ACETAMINOPHEN 500 MG TAB PO PRN ×3 (00:57→14:50)
[2018-03-17 01:29] VITALS: O2SAT 95
[2018-03-17] MEDS: MORPHINE 4 MG/ML SYR IV PRN ×2 (04:16→14:41)
[2018-03-17] MEDS: VANCOMYCIN 1.5 GM in NA CHLORIDE 0.9% 500 ML IVPB SCH (05:20)
[2018-03-17] MEDS: PANTOPRAZOLE 40MG TABLET PO SCH ×2 (08:30→16:38)
[2018-03-17] MEDS: MUPIROCIN 2% OINT 22GM TUBE TOP SCH ×2 (08:31→21:12)
[2018-03-17] MEDS: AMLODIPINE 10 MG TAB PO SCH (09:03)
--- NOTE | 2018-03-17 11:58 | PN ---
Date of Progress Note: 03/17/2018 Subjective: The patient is awake, alert. Pain is better. Vital signs stable, afebrile. Cultures p ending. Dressing clean, dry, and intact. Assessment: Status post incision and drainage and debridement of right lower quadrant abdominal wall abscess. Recommendations: Continue IV antibiotics. Check cultures. Adjust antibiotics accordingly and then patient can probably go home on oral antibiotics based on the sensitivities. Wound care as ordered. /MODL Voice ID: [id number] Report ID: [id number]
--- NOTE | 2018-03-17 15:35 | P.PN ---
Subjective Date of Service: 03/17/18 Chief Complaint: Abdominal wall abscess doing better except headaches, some lower abd pain Physical Examination - Vital Signs Temperature: 97.6 F Blood Pressure: 140/98 Pulse: 85 Respirations: 17 Pulse Ox (%): 98 - Physical Exam General: Alert, In no apparent distress HEENT: Atraumatic, PERRLA, EOMI Neck: Supple, JVD not distended Respiratory: Clear to auscultation bilaterally, Normal air movement Cardiovascular: Regular rate/rhythm, Normal S1 S2 Gastrointestinal: Normal bowel sounds, No tenderness Musculoskeletal: No tenderness Integumentary: No rashes Neurological: Normal speech, Normal tone, Normal affect Lymphatics: No axilla or inguinal lymphadenopathy - Studies Medications List Reviewed: Yes Assessment And Plan - Current Problems (Diagnosis) (1) Abdominal wall abscess Current Visit: Yes Status: Acute - Plan cont Van Zosyn Await cx Pain meds
[2018-03-17] MEDS: HYDROCODONE/APAP 10/325 TAB PO PRN (15:52)
[2018-03-17] MEDS: FENTANYL CITR 100 MCG/2 ML IV PRN (21:11)
[2018-03-18] MEDS: VANCOMYCIN 1.5 GM in NA CHLORIDE 0.9% 500 ML IVPB SCH (01:03)
[2018-03-18] MEDS: PIPER/TAZO/NS 3.375gm 3.375 GM/100 ML BAG IVPB SCH ×2 (01:04→08:27)
[2018-03-18] MEDS: FENTANYL CITR 100 MCG/2 ML IV PRN ×2 (02:04→14:05)
[2018-03-18] MEDS: ACETAMINOPHEN 500 MG TAB PO PRN (02:05)
[2018-03-18 04:24] VITALS: BMI 34.0
[2018-03-18 05:55] LABS: Absolute Lymphocytes (CBC) 2.9 K/uL (0.7-4.9); Absolute Monocytes 0.5 K/uL (0.1-1.3); Absolute Neutrophil 3.5 K/uL (1.8-8.0); Basophils % 1.2 % (0-1.3); Eosinophils % 3.8 % (0-4.4); Hematocrit 32.7 % (36.0-45.0); Lymphocytes % 39.6 % (15.3-44.8); MCH 27.6 pg (27.0-35.0); MCV 81.7 fL (80-100); MPV 7.6 fL (7.6-11.3); Monocytes % 7.3 % (3.3-12.3)
[2018-03-18 06:18] LABS: ALT/SGPT 49 U/L (12-78); AST/SGOT 57 U/L (15-37); Albumin 2.1 g/dL (3.4-5.0); Alkaline Phosphatase 108 U/L (45-117); BUN Blood Urea Nitrogen 1 mg/dL (7-18); Bicarbonate 28 mmol/L (21-32); Bilirubin Total 0.1 mg/dL (0.2-1.0); Glucose Level 112 mg/dL (74-106); Protein, Total 6.2 g/dL (6.4-8.2); Sodium Level 144 mmol/L (136-145)
[2018-03-18 06:26] LABS: Magnesium 1.6 mg/dL (1.8-2.4)
[2018-03-18 06:30] LABS: Potassium 2.8 mmol/L (3.5-5.1)
[2018-03-18] MEDS ORDERED: MAGNESIUM SULFATE 1 gm IVPB 1 GM/100 ML BAG IV ONE (07:00)
[2018-03-18] MEDS ORDERED: KCL 20 MEQ/100 mL IVPB 20 MEQ/100 ML BAG IV SCH ×2 (08:00→09:00)
[2018-03-18] MEDS ORDERED: POTASSIUM 25 MEQ EFFERV TAB PO ONE ×2 (08:09→18:17)
[2018-03-18] MEDS: AMLODIPINE 10 MG TAB PO SCH (08:27)
[2018-03-18] MEDS: PANTOPRAZOLE 40MG TABLET PO SCH ×2 (08:27→17:24)
[2018-03-18] MEDS: HYDROCODONE/APAP 10/325 TAB PO PRN ×2 (08:28→22:33)
[2018-03-18] MEDS: MUPIROCIN 2% OINT 22GM TUBE TOP SCH ×2 (08:28→22:34)
--- NOTE | 2018-03-18 12:50 | P.PN ---
Subjective Date of Service: 03/18/18 Chief Complaint: Abdominal wall abscess doing better except headaches, some lower abd pain Physical Examination - Vital Signs Temperature: 98.7 F Blood Pressure: 143/88 Pulse: 82 Respirations: 18 Pulse Ox (%): 96 - Physical Exam General: Alert, In no apparent distress HEENT: Atraumatic, PERRLA, EOMI Neck: Supple, JVD not distended Respiratory: Clear to auscultation bilaterally, Normal air movement Cardiovascular: Regular rate/rhythm, Normal S1 S2 Gastrointestinal: Normal bowel sounds, No tenderness Musculoskeletal: No tenderness Integumentary: No rashes Neurological: Normal speech, Normal tone, Normal affect Lymphatics: No axilla or inguinal lymphadenopathy - Studies Medications List Reviewed: Yes Assessment And Plan - Current Problems (Diagnosis) (1) Abdominal wall abscess Current Visit: Yes Status: Acute - Plan MRSA PLANS --DC Van Zosyn --Start Bactrim and Doxycycle --Pain meds --Replace K Mag --Social Work --DC tomorrow, Placement
[2018-03-18] MEDS ORDERED: VANCOMYCIN 1.5 GM in NA CHLORIDE 0.9% 500 ML IVPB SCH (13:00)
--- NOTE | 2018-03-18 13:24 | PN ---
Date of Progress Note: 03/18/2018 Subjective: The patient is awake, alert. No new complaint. Vital signs stable, afebrile. Cultures are growing MRSA, sensitive to Bactrim and doxy. Dressing is clean, dry, and intact. Assessment: Incision, drainage, and debridement of the right lower quadrant abscess. Recommendation: As far as surgery is concern, the patient can be discharged home on Bactrim and doxy along with MRSA precaution with Hibiclens and Bactroban. Dressing change is ordered. Follow up in my office in 1 to 2 weeks. CHELITA/JENNIFER Voice ID: [id number] Report ID: [id number]
[2018-03-18] MEDS ORDERED: ALPRAZOLAM 1 MG TABLET PO ONE (14:56)
[2018-03-18] MEDS: MAGNES/ALUMIN/SIMET 30ML UCUP PO PRN (19:56)
[2018-03-18] MEDS: DOXYCYCLINE 100 MG CAP PO SCH (22:32)
[2018-03-18] MEDS: SMZ./TMP. 800/160 MG TABLET PO SCH (22:33)
[2018-03-19 06:49] LABS: ALT/SGPT 92 U/L (12-78); AST/SGOT 132 U/L (15-37); Albumin 2.3 g/dL (3.4-5.0); Alkaline Phosphatase 111 U/L (45-117); BUN Blood Urea Nitrogen 2 mg/dL (7-18); Bicarbonate 32 mmol/L (21-32); Glucose Level 96 mg/dL (74-106); Potassium 3.2 mmol/L (3.5-5.1); Protein, Total 6.6 g/dL (6.4-8.2); Sodium Level 140 mmol/L (136-145)
[2018-03-19 07:06] LABS: Bilirubin Total < 0.1 mg/dL (0.2-1.0)
[2018-03-19] MEDS ORDERED: POTASSIUM 25 MEQ EFFERV TAB PO ONE (09:00)
[2018-03-19] MEDS: AMLODIPINE 10 MG TAB PO SCH (09:03)
[2018-03-19] MEDS: DOXYCYCLINE 100 MG CAP PO SCH (09:03)
[2018-03-19] MEDS: PANTOPRAZOLE 40MG TABLET PO SCH (09:03)
[2018-03-19] MEDS: SMZ./TMP. 800/160 MG TABLET PO SCH (09:03)
[2018-03-19] MEDS: MUPIROCIN 2% OINT 22GM TUBE TOP SCH (09:04)
--- NOTE | 2018-03-19 12:57 | P.DS ---
Admission Date: 03/16/18 Discharge Date: 03/19/18 Primary Care Provider: None Disposition: ROUTINE DISCHARGE Discharge Condition: GOOD Reason for Admission: Abdominal wall abscess Consultations: Surgery-Dr. Rose Procedures: CT Scan: COMPARISON: None. TECHNIQUE: Biphasic, helical CT imaging of the abdomen and pelvis was performed following 100 ml non-ionic IV contrast. Oral contrast was given. All CT scans are performed using dose optimization technique as appropriate and may include automated exposure control or mA/KV adjustment according to patient size. FINDINGS: Atelectasis changes are present with no acute finding. The liver, spleen, and pancreas show no suspicious findings. Gallbladder and biliary tree are also without suspicious finding. Symmetric renal function is seen with no hydronephrosis or suspicious renal mass. No adrenal gland or urinary bladder abnormality. No dilated bowel loops or bowel wall thickening. No free air, free fluid or inflammatory stranding in the peritoneal or retroperitoneal spaces. . No hernia , mass or bulky lymphadenopathy. Uterus and ovaries show no suspicious findings. No suspicious bony findings. In the subcutaneous fatty tissues lower right pelvis there is a 7 centimeter area of ill-defined soft tissue attenuation. There is skin thickening in this region. No air in the soft tissues. No defined drainable abscess seen at this time. There is congestion and edema in the fat from skin surface down to the anterior abdominal wall. No involvement of the abdominal wall musculature identifiable. No intraperitoneal or retroperitoneal extension. IMPRESSION: Approximately 7 centimeter area of phlegmonous inflammatory change in the subcutaneous fatty tissues right lower quadrant. No clearly defined drainable fluid collection at this time. No air in the soft tissues. The cellulitis and infectious changes are limited to the skin and subcutaneous fatty tissues. Surgery: Date of Procedure: 03/16/2018 Surgeon: Nazario Rose MD Preoperative Diagnosis: Right lower quadrant abdominal wall abscess. Postoperative Diagnosis: Right lower quadrant abdominal wall abscess. Procedure: Incision, drainage, and debridement of right lower quadrant abdominal wall abscess. Estimated Blood Loss: Minimal. Specimen: Pus. Findings: As above. Anesthesia: General. Complications: None. Medical Problem List: Right lower quadrant abdominal pain secondary to 7 cm subcutaneous fatty tissue wall abscess and cellulitis with positive wound culture for methicillin- resistant Staph aureus. Status post incision, drainage and debridement of right lower quadrant abdominal wall abscess Hypokalemia GERD Elevated Liver function Hypertension Brief History of Present Illness: 47-year-old female presented emergency room with right lower quadrant abdominal pain Patient was found to have 7 cm subcutaneous fatty tissue wall abscess and cellulitis as per CT scan. Patient was admitted for treatment. Hospital Course: Patient was admitted for Right lower quadrant abdominal pain secondary to 7 cm subcutaneous fatty tissue wall abscess and cellulitis with positive wound culture for methicillin-resistant Staph aureus. Patient was seen evaluated by surgery. Surgery recommended surgical intervention. Patient had incision, drainage and debridement of right lower quadrant abdominal wall abscess. Patient tolerated procedure well. Wound culture was positive for methicillin- resistant Staph aureus. At discharge she will continue with doxycycline 100 mg 1 pill twice daily and Bactrim DS 1 pill twice daily for 10 days. She will also continue with wound care. This will be taught prior discharge. Patient will continue with Bactroban ointment to the nares and umbilicus while on antibiotics. Patient will follow up at the wound Care Center within 1 week or follow up with surgery in 1 week to continue her care. Patient has GERD. Patient will continue with Prilosec 20 mg 1 pill daily. Lifestyle modification education will be provided. Patient had electrolyte abnormalities. This was addressed and replace. Recommendation to recheck lab-BMP in 1 week to monitor progress. Patient had slight elevation in liver function test. Hepatitis panel will be sent off. This can be followed up as an outpatient. Patient has hypertension. Patient will continue with Norvasc 10 mg 1 pill daily. Recommendation is to maintain blood pressures less 150/80. Further adjustment can be done by her PCP. Vital Signs/Physical Exam: Temp Pulse Resp BP Pulse Ox 97.5 F 87 20 139/69 98 03/19/18 08:00 03/19/18 09:03 03/19/18 08:00 03/19/18 09:03 03/19/18 08:00 General: Alert, In no apparent distress, Oriented x3, Cooperative HEENT: Atraumatic Neck: Supple Respiratory: Clear to auscultation bilaterally, Normal air movement Cardiovascular: Normal pulses, Regular rate/rhythm Gastrointestinal: Normal bowel sounds, Other (Postoperative changes of right lower quadrant abdominal wall abscess status post incision, drainage.) Musculoskeletal: No erythema, No tenderness, No warmth Neurological: Normal speech, Normal strength at 5/5 x4 extr, Normal tone, Normal affect Laboratory Data at Discharge: WBC 7.2 K/uL (4.3-10.9) D 03/18/18 04:50 Hgb 11.0 g/dL (12.0-15.0) L 03/18/18 04:50 Hct 32.7 % (36.0-45.0) L 03/18/18 04:50 Plt Count 496 K/uL (152-406) H 03/18/18 04:50 Sodium 140 mmol/L (136-145) 03/19/18 05:43 Potassium 3.2 mmol/L (3.5-5.1) L 03/19/18 05:43 BUN 2 mg/dL (7-18) L 03/19/18 05:43 Creatinine 0.70 mg/dL (0.55-1.3) 03/19/18 05:43 Glucose 96 mg/dL (74-106) 03/19/18 05:43 Phosphorus 3.4 mg/dL (2.5-4.9) 03/16/18 11:15 Magnesium 2.0 mg/dL (1.8-2.4) 03/19/18 05:43 Total Bilirubin < 0.1 mg/dL (0.2-1.0) L 03/19/18 05:43 AST 132 U/L (15-37) H 03/19/18 05:43 ALT 92 U/L (12-78) H 03/19/18 05:43 Alkaline Phosphatase 111 U/L (45-117) 03/19/18 05:43 Lipase 134 U/L (73-393) 03/16/18 11:15 Home Medications: Omeprazole Magnesium [Prilosec Otc] 20 mg PO AC 03/16/18 Amlodipine [Norvasc*] 10 mg PO DAILY #30 tab 03/19/18 Doxycycline Hyclate 100 mg PO BID #20 tablet 03/19/18 Mupirocin Oint [Bactroban 2% Ointment*] 1 appl TOP BID #1 tube 03/19/18 Smz./Tmp. [Bactrim Ds 800 MG/160 MG*] 1 tab PO BID #20 tab 03/19/18 Tramadol HCl [Ultram] 50 mg PO BID PRN #15 tablet 03/19/18 New Medications: Amlodipine [Norvasc*] 10 mg PO DAILY #30 tab Doxycycline Hyclate 100 mg PO BID #20 tablet Mupirocin Oint [Bactroban 2% Ointment*] 1 appl TOP BID #1 tube Smz./Tmp. [Bactrim Ds 800 MG/160 MG*] 1 tab PO BID #20 tab Tramadol HCl [Ultram] 50 mg PO BID PRN #15 tablet PRN Reason: Pain Patient Discharge Instructions: 1. Patient will need to establish care with a PCP to follow up this hospitalization. 2. Patient was admitted for Right lower quadrant abdominal pain secondary to 7 cm subcutaneous fatty tissue wall abscess and cellulitis with positive wound culture for methicillin-resistant Staph aureus. Patient was seen evaluated by surgery. Surgery recommended surgical intervention. Patient had incision, drainage and debridement of right lower quadrant abdominal wall abscess. Patient tolerated procedure well. Wound culture was positive for methicillin-resistant Staph aureus. At discharge she will continue with doxycycline 100 mg 1 pill twice daily and Bactrim DS 1 pill twice daily for 10 days. A limited supply of tramadol 50 mg 1 pill twice daily as needed for pain will be provided. She will also continue with wound care. This will be taught prior discharge. Patient will continue with Bactroban ointment to the nares and umbilicus while on antibiotics. Patient will follow up at the wound Care Center within 1 week or follow up with surgery in 1 week to continue her care. 3. Patient has GERD. Patient will continue with Prilosec 20 mg 1 pill daily. Lifestyle modification education will be provided. 4. Patient had electrolyte abnormalities. This was addressed and replace. Recommendation to recheck lab-BMP in 1 week to monitor progress. 5. Patient had slight elevation in liver function test. Hepatitis panel will be sent off. This can be followed up as an outpatient. 6. Patient has hypertension. Patient will continue with Norvasc 10 mg 1 pill daily. Recommendation is to maintain blood pressures less 150/80. Further adjustment can be done by her PCP. Diet: AHA Activity: Ad haley Time spent managing pt's care (in minutes): 55
[2018-03-19 15:15] VITALS: BP 118/66; TEMP 97.6
--- NOTE | 2018-03-19 20:03 | PN ---
Date of Progress Note: 03/19/2018 Subjective: The patient is awake alert. No new complaints. Objective: Vital Signs: Stable. Afebrile. Extremities: Dressing clean, dry, and intact. Assessment: Status post I and D of right lower quadrant abdominal wall abscess. Recommendation: The patient will be discharged home today. Follow up with me in the [facility]. Antibiotics given as well as discharge instructions and wound care orders. /MODL Voice ID: [id number] Report ID: [id number]
== END 2018-03-19 16:30 | disposition home health service (06) | DRG 602 ==
LOC: ER 19:52 → ERHOLD 03-16 00:40 → 2ND 03-16 02:54
PROVIDERS: ADMIT Hospitalist; ATTEND Hospitalist
PROC: 0J980ZX Drainage of Abdomen Subcutaneous Tissue and Fascia, Open Approach, Diagnostic (ICD-10-PCS; principal; 2018-03-16 09:00)
DX: L03.311 Cellulitis of abdominal wall (principal); E43 Unspecified severe protein-calorie malnutrition; L02.211 Cutaneous abscess of abdominal wall; B95.62 Methicillin resistant Staphylococcus aureus infection as the cause of diseases classified elsewhere; E87.6 Hypokalemia; K21.9 Gastro-esophageal reflux disease without esophagitis; R79.89 Other specified abnormal findings of blood chemistry; I10 Essential (primary) hypertension; R51 Headache; E83.42 Hypomagnesemia; E66.9 Obesity, unspecified; Z68.34 Body mass index [BMI] 34.0-34.9, adult; F41.9 Anxiety disorder, unspecified
CPT/HCPCS: 36415; 74177; 80048; 80053; 80076; 80202; 81003; 81025; 82550; 83690; 83735; 84100; 84132; 84145; 85025; 87040; 87070; 87075; 87077; 87186; 87205; 99285; J2175; J2250; J2405; J2543; J3010; J3370; J3475; J3590; J7030; Q9967

== ENCOUNTER 2021-10-15 19:41 | Emergency (ER) | payer OTHER ==
[2021-10-15] MEDS ORDERED: IBUPROFEN 400 MG TAB ONE (20:37)
[2021-10-15] MEDS ORDERED: HYDROCODONE/APAP 7.5/325 MG TAB ONE (20:37)
--- OUTSIDE RECORDS SUMMARY | 2021-10-15 20:41 | XMS REPORT | Continuity of Care Document ---
:1970 Author Organization [facility] t Address [address] [place] [address] Care Team Providers Name Role Phone Unavailable Unavailable Unavailable Problems Condition Condition Condition Status Onset Resolution Last Treating Co mments Source Name Details Category Date Date Treatment Clinician Date Hematochez Hematochez Diagnosis [facility] Chronic Chronic Diagnosis [facility] Bilateral Bilateral Diagnosis Active [facility] leg leg [facility] p[facility]i [facility]arest[facility]ia [facility] Urinary Urinary Diagnosis [facility] - ce, ce, Memoria unspecifie unspecifie l d type d type [facility] Other Other Problem Active [facility] Fibromyalg Fibromyalg Problem Active [facility] Low back Low back Problem Active [facility] Allergies, Adverse Reactions, Alerts This patient has no known allergies or adverse reactions. Medications Ordered Filled Start Stop Current Ordering Indication Dosage Frequency Signature Comments Components Source Medication Medication Date Date Medication? Clinician (SIG) Name Name Gabapentin Gabapentin Yes Fernando [address] [facility] Multivitami Multivitami Yes Fernando not [facility] BC Headache BC Headache Yes Fernando not [facility] Procedures This patient has no known procedures. Encounters Start End Encounter Admission Attending Care Care Encounter Source Date/Time Date/Time Type Type Clinicians Facility Department ID 2017-12-05 2017-12-05 [facility] [id number] [address] 15:15[facility] 15:15[facility]00 t [email or web address] [facility] Results This patient has no known results.
[2021-10-15] MEDS ORDERED: FLUORESCEIN SODIUM 1 MG/WRAP ONE (20:42)
[2021-10-15] MEDS ORDERED: TETRACAINE HCL 0.5% 4ML OPTH ONE (20:42)
--- NOTE | 2021-10-15 21:17 | ER ---
Nurse's Notes [facility] Name: Edna Hoang Age: 51 yrs Sex: Female : 1970 Arrival Date: 10/15/2021 Time: 19:48 Bed Treatment Private MD: Diagnosis: Other conjunctivitis-right eye Presentation: 10/15 20:04 Chief complaint: Patient states: "I have a contact in my right eye that has been there ab2 for 3-4 months and I cant get it out. It hurts really bad.". Coronavirus screen: Vaccine status: Patient reports receiving the 2nd dose of the covid vaccine. Client denies travel out of the [place] in the last 14 days. At this time, the client does not indicate any symptoms associated with coronavirus-19. Ebola Screen: Patient negative for fever greater than or equal to 101.5 degrees Fahrenheit, and additional compatible Ebola Virus Disease symptoms Patient denies exposure to infectious person. Patient denies travel to an Ebola-affected area in the 21 days before illness onset. No symptoms or risks identified at this time. Initial Sepsis Screen: Does the patient meet any 2 criteria? No. Patient's initial sepsis screen is negative. Does the patient have a suspected source of infection? No. Patient's initial sepsis screen is negative. Risk Assessment: Do you want to hurt yourself or someone else? Patient reports no desire to harm self or others. Onset of symptoms is unknown. 20:04 Method Of Arrival: Ambulatory ab2 20:04 Acuity: YANETH 4 ab2 Historical: - Allergies: 20:05 No Known Allergies; ab2 - PMHx: 20:05 Anxiety; Seizures; Fibromyalgia; ab2 - PSHx: 20:05 None; ab2 - Immunization history:: Adult Immunizations up to date. - Social history:: Smoking status: Patient reports the use of cigarette tobacco products, smokes one pack cigarettes per day. Screenin:17 Abuse screen: Denies threats or abuse. Nutritional screening: No deficits noted. ag7 Tuberculosis screening: No symptoms or risk factors identified. Fall Risk No fall in past 12 months (0 pts). No secondary diagnosis (0 pts). No IV (0 pts). Ambulatory Aid- None/Bed Rest/Nurse Assist (0 pts). Gait- Normal/Bed Rest/Wheelchair (0 pts) Mental Status- Oriented to own ability (0 pts). Total Gaines Fall Scale indicates No Risk (0-24 pts). Assessment: 20:14 General: Appears in no apparent distress. Behavior is calm, cooperative, appropriate ag7 for age. Pain: Complains of pain in right eye Pain radiates to head Pain currently is 9 out of 10 on a pain scale. Quality of pain is described as pressure, Pain began suddenly, Is continuous, Alleviated by nothing. Neuro: Level of Consciousness is awake, alert, obeys commands, Oriented to Appropriate for age. Cardiovascular: Patient's skin is warm and dry. Respiratory: Airway is patent Trachea midline Respiratory effort is even, unlabored, Respiratory pattern is regular, symmetrical. EENT: Eyes are tearing on outer aspect of conjuctiva of right eye, iris of right eye and inner aspect of conjuctiva of right eye with exudate noted from outer aspect of conjuctiva of left eye, iris of left eye and inner aspect of conjunctiva of left eye with foreign body noted in outer aspect of conjuctiva of right eye, iris of right eye and inner aspect of conjuctiva of right eye Patient verbalize contact in her right eye x2 months. Sclera/Cornea are reddened in outer aspect of conjuctiva of left eye and inner aspect of conjunctiva of left eye right eye swelling noted. 21:15 Reassessment: Patient and/or family updated on plan of care and expected duration. Pain ag7 level reassessed. Patient is alert, oriented x 3, equal unlabored respirations, skin warm/dry/pink. Charge nurse at bedside to assist with administration of tetracaine. Patient c/o pain and not able to open eye. The patient will not allow this nurse to help administer medication. The patient is anxious and crying. Vital Signs: 20:04 BP 146 / 98; Pulse 93; Resp 18; Temp 98.3; Pulse Ox 100% on R/A; Weight 63.96 kg; ab2 Height 5 ft. 3 in. (160.02 cm); Pain 10/10; 20:04 Body Mass Index 24.98 (63.96 kg, 160.02 cm) ab2 Visual Acuity: 21:27 Left Eye Visual acuity 20/20, Pupil size 3 mm, ; Right Eye Visual acuity 20/50, Pupil ag7 size 3 mm, ; Both Eyes Visual acuity 20/20; Without Lenses; ED Course: 19:48 Patient arrived in ED. ja2 20:03 Kennedy Sandhu PA is PHCP. cp 20:03 Luis Daniel Johnson MD is Attending Physician. cp 20:05 Triage completed. ab2 20:14 Leigh Ann Grace, BEBETO is Primary Nurse. ag7 20:17 Arm band placed on. ag7 20:17 Patient has correct armband on for positive identification. Bed in low position. Call ag7 light in reach. 21:14 Rehan Lanier MD is Referral Physician. cp 21:57 No provider procedures requiring assistance completed. Patient did not have IV access ag7 during this emergency room visit. Administered Medications: 20:36 Drug: Hydrocodone-Acetaminophen (7.5 mg-325 mg) 1 tabs Route: PO; ag7 21:28 Follow up: Response: No adverse reaction; Pain is decreased ag7 20:36 Drug: Ibuprofen 800 mg Route: PO; ag7 21:28 Follow up: Response: No adverse reaction; Pain is decreased ag7 20:55 Drug: Tetracaine Drops 0.5 % 1 drops Route: Ophthalmic; Site: right eye; ag7 21:28 Follow up: Response: No adverse reaction; Pain is decreased ag7 21:28 Drug: Gentamicin Drops 0.3 % 1 drops Route: Ophthalmic; Site: right eye; ag7 21:28 Follow up: Response: No adverse reaction; Medication administered at discharge. ag7 Outcome: 21:16 Discharge ordered by MD. cp 21:58 Discharged to home ambulatory. ag7 21:58 Condition: stable 21:58 Discharge instructions given to patient, Instructed on discharge instructions, follow up and referral plans. medication usage, Demonstrated understanding of instructions, follow-up care, medications, Prescriptions given X 1. 21:58 Patient left the ED. ag7 Signatures: Kennedy Sandhu PA PA cp Alexander, Jessica ja2 Leoncio Key ab2 Leigh Ann Grace RN RN ag7 Corrections: (The following items were deleted from the chart) 21:58 21:15 Reassessment: Patient and/or family updated on plan of care and expected ag7 duration. Pain level reassessed. Patient is alert, oriented x 3, equal unlabored respirations, skin warm/dry/pink. Charge nurse at bedside to assist with administration of tetracaine. Patient c/o pain and not able to open eye. The patient will not allow this nurse to help administer medication. The patient is anxious. ag7
--- NOTE | 2021-10-15 21:17 | EDPHYS ---
Physician Documentation [facility] Name: Edna Hoang Age: 51 yrs Sex: Female : 1970 Arrival Date: 10/15/2021 Time: 19:48 Bed Treatment Private MD: ISSAC Physician Luis Daniel Johnson HPI: 10/15 20:30 This 51 yrs old Female presents to ER via Ambulatory with complaints of Foreign Body In cp Eye. 20:30 The patient is experiencing foreign body sensation, pain, to the right eye, caused by cp contact lens. 20:30 Onset: The symptoms/episode began/occurred 3-4 months ago. cp 20:30 Duration: the symptoms are continuous. cp 20:30 Associated signs and symptoms: Pertinent negatives: dizziness, ear ache, fever, cp headache. Patient wears soft contacts. Historical: - Allergies: 20:05 No Known Allergies; ab2 - PMHx: 20:05 Anxiety; Seizures; Fibromyalgia; ab2 - PSHx: 20:05 None; ab2 - Immunization history:: Adult Immunizations up to date. - Social history:: Smoking status: Patient reports the use of cigarette tobacco products, smokes one pack cigarettes per day. ROS: 20:35 Eyes: Positive for foreign body sensation, pain, of the right eye. cp 20:35 Constitutional: Negative for body aches, chills, fever. cp 20:35 Cardiovascular: Negative for chest pain, palpitations. 20:35 Respiratory: Negative for cough, shortness of breath, wheezing. 20:35 Skin: Negative for rash. 20:35 Neuro: Negative for altered mental status, dizziness, headache, weakness. 20:35 All other systems are negative. Exam: 20:40 Constitutional: The patient appears in no acute distress, alert, awake, well developed, cp well nourished, anxious, uncomfortable, uncooperative 20:40 Head/Face: Normocephalic, atraumatic. cp 20:40 Eyes: Periorbital structures: appear normal, Pupils: equal, round, and reactive to light and accomodation, Extraocular movements: intact throughout, Conjunctiva: injected, in the right eye, Corneas: abrasion, is not appreciated, foreign body, is not appreciated, a fluorescein strip employed to appreciate the findings, Lids and lashes: appear normal, drainage, ecchymosis, stye, f lower right eyelid. Intraocular pressure: unable to test, patient uncooperative, patient uncooperative in attempt to invert lids and examine conjunctiva. 20:40 ENT: External ear(s): are unremarkable, Nose: is normal, Mouth: Lips: moist, Oral mucosa: moist, Posterior pharynx: Airway: no evidence of obstruction, patent. 20:40 Neck: ROM/movement: is normal, is supple, without pain, no range of motions limitations, Lymph nodes: no appreciated lymphadenopathy. 20:40 Chest/axilla: Inspection: normal. 20:40 Cardiovascular: Rate: normal. 20:40 Respiratory: the patient does not display signs of respiratory distress, Respirations: normal. 20:40 Skin: cellulitis, is not appreciated, no rash present. Vital Signs: 20:04 BP 146 / 98; Pulse 93; Resp 18; Temp 98.3; Pulse Ox 100% on R/A; Weight 63.96 kg; ab2 Height 5 ft. 3 in. (160.02 cm); Pain 10/10; 20:04 Body Mass Index 24.98 (63.96 kg, 160.02 cm) ab2 Visual Acuity: 21:27 Left Eye Visual acuity 20/20, Pupil size 3 mm, ; Right Eye Visual acuity 20/50, Pupil ag7 size 3 mm, ; Both Eyes Visual acuity 20/20; Without Lenses; MDM: 20:13 Patient medically screened. cp 21:15 Data reviewed: vital signs, nurses notes. cp 21:15 Counseling: I had a detailed discussion with the patient and/or guardian regarding: the cp historical points, exam findings, and any diagnostic results supporting the discharge/admit diagnosis, the need for outpatient follow up, an opthalmologist, to return to the emergency department if symptoms worsen or persist or if there are any questions or concerns that arise at home. Response to treatment: the patient's symptoms have mildly improved after treatment, and as a result, I will discharge patient. 10/15 20:32 Order name: Eye Tray; Complete Time: 20:56 cp 10/15 20:32 Order name: Fluoresene Opth strip; Complete Time: 20:56 cp 10/15 20:32 Order name: Visual Acuity; Complete Time: 21:26 cp Administered Medications: 20:36 Drug: Hydrocodone-Acetaminophen (7.5 mg-325 mg) 1 tabs Route: PO; ag7 21:28 Follow up: Response: No adverse reaction; Pain is decreased ag7 20:36 Drug: Ibuprofen 800 mg Route: PO; ag7 21:28 Follow up: Response: No adverse reaction; Pain is decreased ag7 20:55 Drug: Tetracaine Drops 0.5 % 1 drops Route: Ophthalmic; Site: right eye; ag7 21:28 Follow up: Response: No adverse reaction; Pain is decreased ag7 21:28 Drug: Gentamicin Drops 0.3 % 1 drops Route: Ophthalmic; Site: right eye; ag7 21:28 Follow up: Response: No adverse reaction; Medication administered at discharge. banner Disposition: 10/16 07:10 Co-signature as Attending Physician, Luis Daniel Johnson MD. [facility] Disposition Summary: 10/15/21 21:16 Discharge Ordered Location: Home cp Problem: new cp Symptoms: have improved cp Condition: Stable cp Diagnosis - Other conjunctivitis - right eye cp Followup: cp - With: Rehan Lanier MD - When: 2 - 3 days - Reason: Recheck today's complaints Discharge Instructions: - Discharge Summary Sheet cp - Bacterial Conjunctivitis, Adult cp Forms: - Medication Reconciliation Form cp - Thank You Letter cp - Antibiotic Education cp - Prescription Opioid Use cp Prescriptions: - Gentamicin 0.3 % Ophthalmic Drops - instill 1 drop by OPHTHALMIC route every 4 hours for 7 days; 1 bottle; Refills: cp 0, Product Selection Permitted Signatures: Kennedy Sandhu PA PA cp Luis Daniel Johnson MD MD [facility] Leoncio Key Angela, RN RN banner
[2021-10-15] MEDS ORDERED: GENTAMICIN 0.3% OPTH DROP 5ML ONE (21:21)
== END 2021-10-15 21:58 | disposition home or self-care (01) ==
LOC: ER 19:41
DX: H10.89 Other conjunctivitis (principal); F17.210 Nicotine dependence, cigarettes, uncomplicated
CPT/HCPCS: 99283

== ENCOUNTER 2022-03-03 01:32 | Emergency (ER) | payer OTHER ==
--- OUTSIDE RECORDS SUMMARY | 2022-03-03 01:35 | XMS REPORT | Continuity of Care Document ---
:1970 Author Organization [facility] t Address [address] [place] [address] Care Team Providers Name Role Phone Unavailable Unavailable Unavailable Problems Condition Condition Condition Status Onset Resolution Last Treating Co mments Source Name Details Category Date Date Treatment Clinician Date Hematochez Hematochez Diagnosis Active Common ia ia [facility] Chronic Chronic Diagnosis Active Commo n GERD GERD [facility] Bilateral Bilateral Diagnosis Active C ommon leg [facility] paresthesi paresthesi - [facility] a a [facility] Urinary Urinary Diagnosis Active Commo n incontinen incontinen Sp sharon ce, ce, - [facility] unspecifie unspecifie [facility] d type d [facility] Other Other Problem Active Common chronic chronic [facility] pain [facility] Fibromyalg Fibromyalg Problem Active C ommon ia ia [facility] Low back Low back Problem Active Commo n pain pain [facility] Allergies, Adverse Reactions, Alerts This patient has no known allergies or adverse reactions. Medications Ordered Filled Start Stop Current Ordering Indication Dosage Frequency Signature Comments Components Source Medication Medication Date Date Medication? Clinician (SIG) Name Name Gabapentin Gabapentin Yes Fernando 1 capsule Common 12-05 [facility] 00:00: - [facility] 00 [facility] Multivitami Multivitami Yes Fernando not Common n n [facility] defined [facility] BC Headache BC Headache Yes Fernando not Common [facility] defined [facility] Procedures This patient has no known procedures. Encounters Start End Encounter Admission Attending Care Care Encounter Source Date/Time Date/Time Type Type Clinicians Facility Department ID 2017-12-05 2017-12-05 [id number] Common 15:15:00 15:15:00 [facility] Results This patient has no known results.
[2022-03-03] MEDS ORDERED: FLUORESCEIN SODIUM 1 MG/WRAP ONE (02:33)
[2022-03-03] MEDS ORDERED: TETRACAINE HCL 0.5% 4ML OPTH ONE (02:34)
--- NOTE | 2022-03-03 03:08 | ER ---
Nurse's Notes [facility] Name: Edna Hoang Age: 51 yrs Sex: Female : 1970 Arrival Date: 03/03/2022 Time: 01:33 Bed 15 Private MD: Diagnosis: Injury of conjunctiva and corneal abrasion without foreign body, right eye Presentation: 03/03 01:44 Chief complaint: Patient states: she is having pain to right eye and it's watering and bb she can't keep it open. Coronavirus screen: At this time, the client does not indicate any symptoms associated with coronavirus-19. Ebola Screen: No symptoms or risks identified at this time. Initial Sepsis Screen: Does the patient meet any 2 criteria? No. Patient's initial sepsis screen is negative. Does the patient have a suspected source of infection? No. Patient's initial sepsis screen is negative. Risk Assessment: Do you want to hurt yourself or someone else? Patient reports no desire to harm self or others. Onset of symptoms was March 02, 2022. 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 - Social history:: Smoking status: Patient reports the use of cigarette tobacco products. Screenin:48 Abuse screen: Denies threats or abuse. Nutritional screening: No deficits noted. bb Tuberculosis screening: No symptoms or risk factors identified. Fall Risk None identified. Assessment: 01:48 General: Appears in no apparent distress. uncomfortable, Behavior is cooperative, bb anxious. Pain: Complains of pain in right eye Pain currently is 10 out of 10 on a pain scale. Neuro: Level of Consciousness is awake, alert, obeys commands, Oriented to person, place, time, situation. Cardiovascular: Capillary refill < 3 seconds Patient's skin is warm and dry. Respiratory: Respiratory effort is even, unlabored, Respiratory pattern is regular. GI: No signs and/or symptoms were reported involving the gastrointestinal system. Derm: Skin is pink, warm \T\ dry. Musculoskeletal: Circulation, motion, and sensation intact. 01:50 EENT: Reports pain in right eye. bb 02:29 General: Appears in no apparent distress. uncomfortable, Behavior is calm, cooperative. lg3 Pain: Complains of pain in right eye Pain does not radiate. Neuro: No deficits noted. Level of Consciousness is awake, alert, obeys commands, Oriented to person, place, time, situation. Cardiovascular: No deficits noted. Denies chest pain, shortness of breath, Capillary refill < 3 seconds Clubbing of nail beds is absent JVD is absent Patient's skin is warm and dry. Respiratory: No deficits noted. Airway is patent Trachea midline Respiratory effort is even, unlabored, Respiratory pattern is regular, symmetrical, Denies cough, shortness of breath. GI: No deficits noted. No signs and/or symptoms were reported involving the gastrointestinal system. Abdomen is flat, non-distended. : No deficits noted. No signs and/or symptoms were reported regarding the genitourinary system. EENT: Eyes swelling and redness noted to right eye. Reports pain in right eye photophobia in right eye. Derm: Skin is intact, is healthy with good turgor, Skin is dry, Skin is normal, Skin temperature is warm. Musculoskeletal: No deficits noted. No signs and/or symptoms reported regarding the musculoskeletal system. Circulation, motion, and sensation intact. Range of motion: intact in all extremities. 03:34 Reassessment: Patient appears in no apparent distress at this time. No changes from lg3 previously documented assessment. Patient and/or family updated on plan of care and expected duration. Pain level reassessed. Patient is alert, oriented x 3, equal unlabored respirations, skin warm/dry/pink. Vital Signs: 01:44 BP 130 / 81; Pulse 93; Resp 16 S; Temp 98.4(O); Pulse Ox 100% on R/A; Weight 65.77 kg bb (R); Height 5 ft. 3 in. (160.02 cm) (R); Pain 10/10; 01:44 Body Mass Index 25.69 (65.77 kg, 160.02 cm) ED Course: 01:33 Patient arrived in ED. ja2 01:46 Triage completed. bb 01:47 Arm band placed on Patient placed in an exam room, on a stretcher. bb 01:48 Patient has correct armband on for positive identification. Call light in reach. bb 01:52 Everton Vidal MD is Attending Physician. kdr 01:54 Pilar Roa, RN is Primary Nurse. lg3 03:34 Assist provider with eye exam using fluorescein stain, Performed by Everton Vidal MD lg3 Patient tolerated well. Patient did not have IV access during this emergency room visit. 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 Exp: lg3 10/23/2023. Lot #: [id number]. } Route: IM; Site: right deltoid; 03:18 Follow up: Response: (VIS) Vaccine information sheet provided today. Questions and/or lg3 concerns addressed. VIS edition date: Jan 22, 2021.; No adverse reaction Medication: 03:19 Vaccine Information Statement (VIS) provided today. Questions and/or concerns lg3 addressed. VIS edition date: January 22, 2021. Outcome: 03:07 Discharge ordered by . kdr 03:34 Discharged to home ambulatory. lg3 03:34 Condition: stable 03:34 Discharge instructions given to patient, Instructed on discharge instructions, follow up and referral plans. medication usage, Demonstrated understanding of instructions, follow-up care, medications, Prescriptions given X 2. 03:34 Patient left the ED. lg3 Signatures: Everton Vidal MD MD kdr Hannah Perez RN RN bb Pilar Roa, RN RN lg3 Sandi Chawla Corrections: (The following items were deleted from the chart) 03:20 01:48 VIS not applicable for this client. bb lg3
--- NOTE | 2022-03-03 03:08 | EDPHYS ---
Physician Documentation [facility] Name: Edna Hoang Age: 51 yrs Sex: Female : 1970 Arrival Date: 03/03/2022 Time: 01:33 Bed 15 Private MD: ED Physician Everton Vidal HPI: 03/03 05:34 This 51 yrs old Female presents to ER via Wheelchair with complaints of Eye Problem. kdr 05:56 The patient is experiencing burning, foreign body sensation, pain, redness. Onset: The kdr symptoms/episode began/occurred gradually, today. Duration: the symptoms are continuous. Aggravated by blinking, closing eye, light, pressure, rubbing, Alleviated by nothing. Associated signs and symptoms: Pertinent positives: None. Pertinent negatives: chills, dizziness, ear ache, fever, headache, runny nose. Patient does not utilize any form of vision correction. Severity of symptoms: At their worst the symptoms were mild in the emergency department the symptoms are unchanged. The patient has not experienced similar symptoms in the past. The patient has not recently seen a physician. 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 - Social history:: Smoking status: Patient reports the use of cigarette tobacco products. ROS: 05:56 Constitutional: Negative for fever, chills, and weight loss, Neck: Negative for injury, kdr pain, and swelling, Cardiovascular: Negative for chest pain, palpitations, and edema, Respiratory: Negative for shortness of breath, cough, wheezing, and pleuritic chest pain, Abdomen/GI: Negative for abdominal pain, nausea, vomiting, diarrhea, and constipation, Back: Negative for injury and pain. 05:56 Eyes: Positive for blurry vision, injury or acute deformity, pain, photophobia, redness, of the right eyebrow and right eye. Exam: 05:56 Constitutional: This is a well developed, well nourished patient who is awake, alert, kdr and in no acute distress. Head/Face: Normocephalic, atraumatic. ENT: Nares patent. No nasal discharge, no septal abnormalities noted. Tympanic membranes are normal and external auditory canals are clear. Oropharynx with no redness, swelling, or masses, exudates, or evidence of obstruction, uvula midline. Mucous membranes moist. Neck: Trachea midline, no thyromegaly or masses palpated, and no cervical lymphadenopathy. Supple, full range of motion without nuchal rigidity, or vertebral point tenderness. No Meningismus. Chest/axilla: Normal chest wall appearance and motion. Nontender with no deformity. No lesions are appreciated. Cardiovascular: Regular rate and rhythm with a normal S1 and S2. No gallops, murmurs, or rubs. Normal PMI, no JVD. No pulse deficits. Respiratory: Lungs have equal breath sounds bilaterally, clear to auscultation and percussion. No rales, rhonchi or wheezes noted. No increased work of breathing, no retractions or nasal flaring. Back: No spinal tenderness. No costovertebral tenderness. Full range of motion. MS/ Extremity: Pulses equal, no cyanosis. Neurovascular intact. Full, normal range of motion. Neuro: Awake and alert, GCS 15, oriented to person, place, time, and situation. Cranial nerves II-XII grossly intact. Motor strength 5/5 in all extremities. Sensory grossly intact. Cerebellar exam normal. Normal gait. Psych: Awake, alert, with orientation to person, place and time. Behavior, mood, and affect are within normal limits. Vital Signs: 01:44 BP 130 / 81; Pulse 93; Resp 16 S; Temp 98.4(O); Pulse Ox 100% on R/A; Weight 65.77 kg bb (R); Height 5 ft. 3 in. (160.02 cm) (R); Pain 10/10; 01:44 Body Mass Index 25.69 (65.77 kg, 160.02 cm) bb MDM: 03:07 Patient medically screened. kdr 05:56 Data reviewed: vital signs, nurses notes, lab test result(s), radiologic studies. kdr Counseling: I had a detailed discussion with the patient and/or guardian regarding: the historical points, exam findings, and any diagnostic results supporting the discharge/admit diagnosis, lab results, the need for outpatient follow up. 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 Exp: lg3 10/23/2023. Lot #: [id number]. } Route: IM; Site: right deltoid; 03:18 Follow up: Response: (VIS) Vaccine information sheet provided today. Questions and/or lg3 concerns addressed. VIS edition date: Jan 22, 2021.; No adverse reaction Disposition Summary: 03/03/22 03:07 Discharge Ordered Location: Home kdr Problem: new kdr Symptoms: have improved kdr Condition: Stable kdr Diagnosis - Injury of conjunctiva and corneal abrasion without foreign body, right eye kdr Followup: kdr - With: Private Physician - When: 2 - 3 days - Reason: If symptoms return, Further diagnostic work-up, Recheck today's complaints, Continuance of care, Re-evaluation by your physician Discharge Instructions: - Discharge Summary Sheet kdr - Corneal Abrasion, [id number] kdr Forms: - Medication Reconciliation Form kdr - Thank You Letter kdr - Antibiotic Education kdr - Prescription Opioid Use kdr Prescriptions: - sulfacetamide sodium 10 % Ophthalmic ointment - apply 0.5 inch by OPHTHALMIC route 3 times per day for 3 days; 1 tube; Refills: kdr 0, Product Selection Permitted - Tramadol 50 mg Oral Tablet - take 1 tablet by ORAL route every 8 hours as needed; 12 tablet; Refills: 0, kdr Product Selection Permitted Signatures: Everton Vidal MD MD kdr Hannah Perez, RN RN bb Pilar Roa, BEBETO RN lg3
[2022-03-03] MEDS ORDERED: TETANUS & DIPHTHERIA TOX,ADULT 0.5 ML VIAL ONE (03:23)
[2022-03-04 06:02] VITALS: BP 130/81; TEMP 98.4; O2SAT 100
== END 2022-03-03 03:34 | disposition home or self-care (01) ==
LOC: ER 01:32
DX: S05.01XA Injury of conjunctiva and corneal abrasion without foreign body, right eye, initial encounter (principal); Z23 Encounter for immunization
CPT/HCPCS: 90471; 90714; 99283

== ENCOUNTER 2022-03-16 00:56 | Emergency (ER) | payer OTHER ==
--- OUTSIDE RECORDS SUMMARY | 2022-03-16 00:58 | XMS REPORT | Continuity of Care Document ---
:1970 Author Organization [facility] t Address [address] [place] [address] Care Team Providers Name Role Phone Unavailable Unavailable Unavailable Problems Condition Condition Condition Status Onset Resolution Last Treating Co mments Source Name Details Category Date Date Treatment Clinician Date Hematochez Hematochez Diagnosis Active Common ia ia [facility] Chronic Chronic Diagnosis Active Commo n GERD GERD [facility] Bilateral Bilateral Diagnosis Active C ommon leg [facility] paresthesi paresthesi [facility] a a [facility] Urinary Urinary Diagnosis Active Commo n incontinen incontinen Sp sharon ce, ce, - [facility] unspecifie unspecifie [facility] d type d [facility] Other Other Problem Active Common chronic chronic [facility] pain [facility] Fibromyalg Fibromyalg Problem Active C ommon ia ia [facility] Low back Low back Problem Active Commo n pain pain [facility] Allergies, Adverse Reactions, Alerts This patient has no known allergies or adverse reactions. Medications Ordered Filled Start Stop Current Ordering Indication Dosage Frequency Signature Comments Components Source Medication Medication Date Date Medication? Clinician (SIG) Name Name Gabapentin Gabapentin Yes Fernando 1 capsule Common 12-05 [facility] 00:00: - [facility] 00 [facility] Multivitami Multivitami Yes Fernando not Common n n Blanchard defined [facility] BC Headache BC Headache Yes Fernando not Common Blanchard defined [facility] Procedures This patient has no known procedures. Encounters Start End Encounter Admission Attending Care Care Encounter Source Date/Time Date/Time Type Type Clinicians Facility Department ID 2017-12-05 2017-12-05 [id number] Common 15:15:00 15:15:00 [facility] it [facility] Results This patient has no known results.
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
--- NOTE | 2022-03-16 01:43 | ER ---
Nurse's Notes [facility] Name: Edna Hoang Age: 51 yrs Sex: Female : 1970 Arrival Date: 03/16/2022 Time: 00:59 Bed 5 Private MD: Diagnosis: Injury of conjunctiva and corneal abrasion without foreign body, right eye Presentation: 03/16 01:37 Chief complaint: Patient states: "My eye has been bothering me for about 6 months it vc1 looks like it has some blood in it.". Coronavirus screen: Vaccine status: Patient reports being unvaccinated. At this time, the client does not indicate any symptoms associated with coronavirus-19. Ebola Screen: No symptoms or risks identified at this time. Initial Sepsis Screen: Does the patient meet any 2 criteria? No. Patient's initial sepsis screen is negative. Does the patient have a suspected source of infection? No. Patient's initial sepsis screen is negative. Risk Assessment: Do you want to hurt yourself or someone else? Patient reports no desire to harm self or others. Onset of symptoms is unknown. 01:37 Method Of Arrival: Ambulatory vc1 01:37 Acuity: YANETH 5 vc1 Triage Assessment: 01:40 General: Appears in no apparent distress. uncomfortable, Behavior is cooperative. Pain: vc1 Complains of pain in right eye. EENT: Eyes swollen. Neuro: No deficits noted. Cardiovascular: No deficits noted. Respiratory: No deficits noted. GI: No deficits noted. No signs and/or symptoms were reported involving the gastrointestinal system. : No deficits noted. No signs and/or symptoms were reported regarding the genitourinary system. Derm: No deficits noted. No signs and/or symptoms reported regarding the dermatologic system. Musculoskeletal: No deficits noted. No signs and/or symptoms reported regarding the musculoskeletal system. Historical: - Allergies: 01:39 No Known Allergies; vc1 - PMHx: 01:39 Anxiety; Fibromyalgia; Seizures; vc1 - PSHx: 01:39 section; hand surgery; vc1 - Immunization history:: Adult Immunizations up to date, Client reports having NOT received the Covid vaccine. - Social history:: Smoking status: Patient reports the use of cigarette tobacco products, smokes one-half pack cigarettes per day. Screenin:41 Abuse screen: Denies threats or abuse. Nutritional screening: No deficits noted. vc1 Tuberculosis screening: No symptoms or risk factors identified. Fall Risk None identified. Vital Signs: 01:37 BP 128 / 92; Pulse 94; Resp 14; Temp 98.5; Pulse Ox 98% on R/A; Weight 65.77 kg; Height vc1 5 ft. 3 in. (160.02 cm); Pain 10/10; 01:37 Body Mass Index 25.69 (65.77 kg, 160.02 cm) vc1 ED Course: 00:59 Patient arrived in ED. bp1 01:10 Patient has correct armband on for positive identification. Call light in reach. vc1 01:14 Vishal Blanchard MD is Attending Physician. sp3 01:15 Rehan Lanier MD is Referral Physician. sp3 01:30 Radha Vickers, BEBETO is Primary Nurse. vc1 01:39 Triage completed. vc1 01:40 Arm band placed on right wrist. vc1 01:41 Assist provider with eye exam of right eye. using ophthalmoscope, Performed by Vishal vc1 Santo POLANCO Patient tolerated well. Patient did not have IV access during this emergency room visit. Administered Medications: No medications were administered Medication: 01:42 VIS not applicable for this client. vc1 Outcome: 01:16 Discharge ordered by . sp3 01:41 Discharged to home ambulatory. vc1 01:41 Condition: good 01:41 Discharge instructions given to patient, Instructed on discharge instructions, follow up and referral plans. medication usage, Demonstrated understanding of instructions, follow-up care, medications, Prescriptions given X 1. 01:42 Patient left the ED. vc1 Signatures: Ju Churchill bp1 Vishal Blanchard MD MD sp3 Radha Vickers, RN RN vc1
[2022-03-18 03:29] VITALS: BP 128/92; TEMP 98.5; O2SAT 98
== END 2022-03-16 01:42 | disposition home or self-care (01) ==
LOC: ER 00:56
DX: S05.01XA Injury of conjunctiva and corneal abrasion without foreign body, right eye, initial encounter (principal); F17.210 Nicotine dependence, cigarettes, uncomplicated
CPT/HCPCS: 99283

== ENCOUNTER → 2023-09-01 | Emergency (ER) | payer OTHER, SELFPAY ==
[~2023-09-01] MED LIST: HYDROCODONE/APAP 7.5/325 MG TAB ONE; IBUPROFEN 200 MG TAB PO ONE; IBUPROFEN 400 MG TAB ONE; LIDOCAINE 1% 20 ML MDV ONE; LORAZEPAM 1 MG TABLET ONE; WATER FOR INJ,STERILE 10 ML ONE; ZIPRASIDONE MESYLA 20 MG/VIAL IM ONE
--- OUTSIDE RECORDS SUMMARY | 2023-09-01 19:35 | XMS REPORT | Continuity of Care Document ---
Author Name Unknown Address [address] [place], [place] [address] [facility] Address [address] [place] [address] [address] [place] [address] Care Team Providers Care Programming Manager Name Role Phone Unavailable Unavailable Unavailable Problems Condition Name Condition Details Condition Category Status Onset Date Resolution Date Last Treatment Date Treating Clinician Comments Source Hematochez ia Hematochez ia Diagnosis Active [facility] Chronic GERD Chronic GERD Diagnosis Active [facility] Bilateral leg paresthesi a Bilateral leg paresthesi a Diagnosis Active [facility] Urinary incontinen ce, unspecifie d type Urinary incontinen ce, unspecifie d type Diagnosis Active [facility] Other chronic pain Other chronic pain Problem Active [facility] Fibromyalg ia Fibromyalg ia Problem Active [facility] Low back pain Low back pain Problem Active [facility] Medications Ordered Medication Name Filled Medication Name Start Date Stop Date Current Medication? Ordering Clinician Indication Dosage Frequency Signature (SIG) Comments Components Source Gabapentin Gabapentin 12-05 00:00: 00 Yes Fernando Blanchard [address] [facility] Multivitami n Multivitami n Yes Fernando Blanchard not defined [facility] BC Headache BC Headache Yes Fernando Blanchard not defined [facility] Encounters Start Date/Time End Date/Time Encounter Type Admission Type Attending Clinicians Care Facility Care Department Encounter ID Source 2017-12-05 15:15:00 2017-12-05 15:15:00 [facility] [id number] [facility]
--- NOTE | 2023-09-01 21:12 | RAD REPORT ---
EXAM DESCRIPTION: RAD - Knee Right 3 View - 09/01/2023 8:57 pm CLINICAL HISTORY: PAIN COMPARISON: No comparisons TECHNIQUE: Right knee, 3 views. FINDINGS: No fracture, dislocation or periosteal reaction.Small suprapatellar joint effusion seen. N o joint space narrowing. Soft tissue swelling and irregularity along the anterior aspect of the knee . IMPRESSION: Soft tissue abnormalities including a small suprapatellar joint effusion. No acute osseu s abnormality.
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
[2023-09-02 02:43] VITALS: BP 138/90; TEMP 97.9; O2SAT 100
== END ==
LOC: ER 19:32
PROC: 0HQKXZZ Repair Right Lower Leg Skin, External Approach (ICD-10-PCS; principal; 2023-09-01)
DX: S81.011A Laceration without foreign body, right knee, initial encounter (principal); F17.210 Nicotine dependence, cigarettes, uncomplicated
CPT/HCPCS: 73562; 12004; J2001; 96372; 99284

== ENCOUNTER 2024-02-15 12:22 | Emergency (ER) | payer OTHER ==
--- OUTSIDE RECORDS SUMMARY | 2024-02-15 12:25 | XMS REPORT | Continuity of Care Document ---
Author Name Unknown Address [address] [place] [address] 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 Name Role Phone PCP, PATIENT DOES NOT HAVE A Primary Care Physic jhon Unavailable Campaigns, Generic Provider Attending Clinician Unavailable Marco HERNANDEZ Attending Clinician Unavailable Marco HERNANDEZ Attending Clinician Unavailable Payers Payer Name Policy Type Policy Number Effective Date Expirati on Date Source Problems Condition Name Condition Details Condition Category Status Onset Date Resolution Date Last Treatment Date Treating Clinician Comments Source Hematochez ia Hematochez ia Diagnosis Active [facility] Chronic GERD Chronic GERD Diagnosis Active [facility] Bilateral leg paresthesi a Bilateral leg paresthesi a Diagnosis Active [facility] Urinary incontinen ce, unspecifie d type Urinary incontinen ce, unspecifie d type Diagnosis Active [facility] Other chronic pain Other chronic pain Problem Active [facility] Fibromyalg ia Fibromyalg ia Problem Active [facility] Low back pain Low back pain Problem Active [facility] Allergies, Adverse Reactions, Alerts Allergy Name Allergy Type Status Severity Reaction(s) Onset Date Inactive Date Treating Clinician Comments Source NO KNOWN ALLERGIE S Drug Class Active [facility] Social History Social Habit Start Date Stop Date Quantity Comments Source Sexual orientation U [facility] Sex assigned at 1970 00:00:00 1970 00:00:00 [facility] Smoking Status Start Date Stop Date Source Tobacco smoking consumption unknown [facility] Medications Ordered Medication Name Filled Medication Name Start Date Stop Date Current Medication? Ordering Clinician Indication Dosage Frequency Signature (SIG) Comments Components Source ketorolac (TORADOL) tablet 10 mg 12-27 01:45: 00 12-27 00:57 :00 No 10mg 10 mg, Oral, ONCE, 1 dose, On Mon12/27/23 at 2045, Routine [facility] erythromyci n (ILOTYCIN) 5 mg/gram (0.5 %) ophthalmic ointment 0.5 Inch 12-27 00:45: 00 12-27 00:51 :00 No .5[in_u s] 0.5 Inch, Right Eye, ONCE, 1 dose, On Mon12/27/23 at 1945, MAGNO [facility] tetracaine (PONTOCAINE ) 0.5 % ophthalmic drops 2 Drop 12-26 22:45: 00 12-26 22:45 :00 No 2[drp] 2 Drop, Right Eye, ONCE, 1 dose, On Mon12/27/23 at 1745, Routine [facility] erythromyci n 5 mg/gram (0.5 %) ophthalmic ointment 12-26 00:00: 00 Yes [id number] .5[in_u s] Place 0.5 Inches in both eyes 4 (four) times daily. Continue until you follow up with eye doctor. [facility] Gabapentin Gabapentin 2017-12-05 00:00: 00 Yes Fernando Blanchard 1 capsule [facility] Multivitami n Multivitami n Yes Fernando Blanchard not defined [facility] BC Headache BC Headache Yes Fernando Blanchard not defined [facility] Vital Signs Vital Name Observation Time Observation Value Comments S ource Systolic blood pressure 2023-12-27 21:40:00 142 mm[Hg] [facility] Diastolic blood pressure 2023-12-27 21:40:00 107 mm[Hg] [facility] Heart rate 2023-12-27 21:40:00 95 /min [facility] Body temperature 2023-12-27 21:40:00 36.56 Tati [facility] Respiratory rate 2023-12-27 21:40:00 17 /min [facility] Body height 2023-12-27 21:40:00 157.5 cm [facility] Body weight 2023-12-27 21:40:00 63.504 kg [facility] BMI 2023-12-27 21:40:00 25.61 kg/m2 [facility] Oxygen saturation in Arterial blood by Pulse oximetry 2023-12-27 21:40:00 100 /min [place] [facility] Encounters Start Date/Time End Date/Time Encounter Type Admission Type Attending Clinicians Care Facility Care Department Encounter ID Source 2024-01-03 00:00:00 2024-01-03 11:07:01 Letter (Out) Campaigns, Generic Provider [facility] [id number] [facility] 2023-12-27 16:41:00 2023-12-27 20:10:00 Emergency X Marco HERNANDEZ K [facility] ERT [id number] [facility] 2023-12-27 16:41:00 2023-12-27 20:10:[address] [facility] [id number] [facility] 2017-12-05 15:15:00 2017-12-05 15:15:00 [facility] [id number] Notes Date/Time Note Provider Source 2023-12-27 20:08:42 Pt given printed and verbal discharge instructions regarding bacterial conjunctivitis, encouraged hand washing, Prescription provided Discussed ibuprofen and to take with food to avoid GI distress, alternate with Tylenol to help with pain and/or fever Pt verbalized understanding of instructions,pt encouraged to follow up with pcp Advised to pseek medical attention for new/prolonged/worsening of symptoms, Awake, alert oriented, resp reg unlabored, skin w/d, pt leaving in no apparent distress, Angelia Yoo RN [facility] 2023-12-27 16:32:00 Patient states: "My right eye's been swelling and hurting since 4-5 days now. Nontraumatic, I just woke up one day rubbing it. It's got my whole head hurting. It's been pouring clear fluid." [facility]
--- NOTE | 2024-02-15 12:43 | ER ---
Nurse's Notes [facility] Name: Edna Hoang Age: 53 yrs Sex: Female : 1970 Arrival Date: 02/15/2024 Time: 12:22 Bed IW2 Private MD: Diagnosis: Unspecified acute conjunctivitis, right eye;Unspecified corneal ulcer, right eye Presentation: 02/14 12:31 Chief complaint: Patient states: right eye bleeds and has pus pocket, trimble. About a tm6 year ago got a contact stuck. Been here about 5 times for the same thing. Coronavirus screen: Vaccine status: Patient reports being unvaccinated. Ebola Screen: Patient negative for fever greater than or equal to 101.5 degrees Fahrenheit, and additional compatible Ebola Virus Disease symptoms Patient denies exposure to infectious person. Patient denies travel to an Ebola-affected area in the 21 days before illness onset. No symptoms or risks identified at this time. Initial Sepsis Screen: Does the patient meet any 2 criteria? No. Patient's initial sepsis screen is negative. Does the patient have a suspected source of infection? No. Patient's initial sepsis screen is negative. Risk Assessment: Do you want to hurt yourself or someone else? Patient reports no desire to harm self or others. 12:31 Method Of Arrival: Ambulatory tm6 12:31 Acuity: YANETH 4 tm6 12:31 Onset of symptoms was February 14, 2023. tm6 Triage Assessment: 12:34 General: Appears in no apparent distress. Behavior is calm, cooperative. Pain: Denies tm6 pain. EENT: Eyes are tearing on right eye Reports discharge from right eye. Neuro: Level of Consciousness is awake, alert, obeys commands, Oriented to person, place, time, situation. Cardiovascular: No deficits noted. Patient's skin is warm and dry. Respiratory: Airway is patent Respiratory effort is even, unlabored, Respiratory pattern is regular, symmetrical. GI: No signs and/or symptoms were reported involving the gastrointestinal system. Abdomen is flat, non-distended. : No signs and/or symptoms were reported regarding the genitourinary system. Derm: No signs and/or symptoms reported regarding the dermatologic system. Musculoskeletal: No signs and/or symptoms reported regarding the musculoskeletal system. 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 - Infectious Disease History:: Denies. - Social history:: Smoking status: Patient reports the use of cigarette tobacco products, smokes one-half pack cigarettes per day, Patient/guardian denies using alcohol. - Family history:: not pertinent. - Hospitalizations: : No recent hospitalization is reported. Screenin:50 [facility] ED Fall Risk Assessment (Adult) History of falling in the last 3 months, tm6 including since admission No falls in past 3 months (0 pts) Confusion or Disorientation No (0 pts) Intoxicated or Sedated No (0 pts) Impaired Gait No (0 pts) Mobility Assist Device Used No (0 pt) Altered Elimination No (0 pt) Score/Fall Risk Level 0 - 2 = Low Risk Oriented to surroundings, Maintained a safe environment, Educated pt \T\ family on fall prevention, incl call for assistance when getting out of bed. Abuse screen: Denies threats or abuse. Denies injuries from another. Nutritional screening: No deficits noted. Tuberculosis screening: No symptoms or risk factors identified. Assessment: 12:50 Reassessment: see triage assessment. tm6 Vital Signs: 12:31 Temp 96.8; tm6 12:33 BP 145 / 96; Pulse 96; Resp 19; Pulse Ox 100% on R/A; Weight 63.5 kg; Height 5 ft. 2 tm6 in. ; Pain 0/10; 12:33 Body Mass Index 25.61 (63.50 kg, 157.48 cm) tm6 12:33 Pain Scale: Adult tm6 ED Course: 12:27 Patient arrived in ED. ra3 12:32 Triage completed. tm6 12:34 Arm band placed on right wrist. tm6 12:35 Noah Pritchard MD is Attending Physician. rn 12:42 Rehan Lanier MD is Referral Physician. rn 12:50 Patient has correct armband on for positive identification. Provided Education on: use tm6 of prescription med. 12:50 No provider procedures requiring assistance completed. Patient did not have IV access tm6 during this emergency room visit. Administered Medications: No medications were administered Medication: 12:50 VIS not applicable for this client. tm6 Outcome: 12:43 Discharge ordered by . rn 12:50 Discharged to home ambulatory, tm6 12:50 Condition: stable 12:50 Discharge instructions given to patient, Instructed on discharge instructions, follow up and referral plans. medication usage, Demonstrated understanding of instructions, follow-up care, medications, Prescriptions given X 1, 12:51 Patient left the ED. tm6 Signatures: Noah Pritchard MD MD rn Masterson, Tawney, RN RN tm6 Cheyenne Soler 3
--- NOTE | 2024-02-15 12:43 | EDPHYS ---
Physician Documentation [facility] Name: Edna Hoang Age: 53 yrs Sex: Female : 1970 Arrival Date: 02/15/2024 Time: 12:22 Bed IW2 Private MD: ED Physician Noah Pritchard HPI: 02/14 12:40 This 53 yrs old Female presents to ER via Ambulatory with complaints of Eye Problem. rn 12:40 The patient is experiencing matting or discharge, redness, tearing, The patient rn sustained None. caused by an unknown mechanism. Onset: The symptoms/episode began/occurred 2 week(s) ago. Aggravated by rubbing, Alleviated by nothing. Severity of symptoms: At their worst the symptoms were moderate in the emergency department the symptoms are unchanged. The patient has experienced similar episodes in the past. Denies injury to the eye, no chemical splash, no puncture, no trauma, no foreign body such as contact as she has had in the past.. ROAD [employer]: 12:33 LMP N/A - Hysterectomy, Not tm6 Historical: - Allergies: 12:33 No Known Allergies; tm6 - PMHx: 12:33 Anxiety; Fibromyalgia; Seizures; tm6 - PSHx: 12:33 section; hand surgery; tm6 - Immunization history:: Client reports having NOT received the Covid vaccine. - Infectious Disease History:: Denies. - Social history:: Smoking status: Patient reports the use of cigarette tobacco products, smokes one-half pack cigarettes per day, Patient/guardian denies using alcohol. - Family history:: not pertinent. - Hospitalizations: : No recent hospitalization is reported. ROS: 12:40 Constitutional: Negative for fever, chills, and weight loss, Eyes: Positive for right rn eye redness and drainage Neuro: Negative for headache, weakness, numbness, tingling, and seizure, Exam: 12:40 Constitutional: This is a well developed, well nourished patient who is awake, alert, rn and in no acute distress. Head/Face: Normocephalic, atraumatic. Eyes: Right eye with 5:00 corneal ulceration, conjunctivitis with injection and matting of eyelids and eyelashes. No foreign body identified. Pupil equally round and reactive to light. Vital Signs: 12:31 Temp 96.8; tm6 12:33 BP 145 / 96; Pulse 96; Resp 19; Pulse Ox 100% on R/A; Weight 63.5 kg; Height 5 ft. 2 tm6 in. ; Pain 0/10; 12:33 Body Mass Index 25.61 (63.50 kg, 157.48 cm) tm6 12:33 Pain Scale: Adult tm6 MDM: 12:35 Patient medically screened. rn 12:40 Differential diagnosis: Corneal abrasion of Corneal ulcer of Data reviewed: vital rn signs, nurses notes, and as a result, I will discharge patient. Counseling: I had a detailed discussion with the patient and/or guardian regarding the historical points, exam findings, and any diagnostic results supporting the discharge/admit diagnosis, the need for outpatient follow up, to return to the emergency department if symptoms worsen or persist or if there are any questions or concerns that arise at home. Special discussion: I discussed with the patient/guardian in detail that at this point there is no indication for admission to the hospital. It is understood, however, that if the symptoms persist or worsen the patient needs to return immediately for re-evaluation. Administered Medications: No medications were administered Disposition Summary: 02/15/24 12:43 Discharge Ordered Notes: Location: Home rn Problem: new rn Symptoms: have improved rn Condition: Stable rn Diagnosis - Unspecified acute conjunctivitis, right eye rn - Unspecified corneal ulcer, right eye rn Followup: rn - With: Rehan Lanier MD - When: As needed - Reason: Recheck today's complaints, Re-evaluation by your physician Discharge Instructions: - Discharge Summary Sheet rn - Bacterial Conjunctivitis, Adult rn Forms: - Medication Reconciliation Form rn - Antibiotic international trade manager - Prescription Opioid Use rn - Patient Portal Instructions rn - Leadership Thank You Letter rn Prescriptions: - Vigamox 0.5 % Ophthalmic Drops - instill 1 drop OPHTHALMIC route every 8 hours for 7 days; 5 milliliter; rn Refills: 0, Product Selection Permitted Signatures: Noah Pritchard MD MD rn Masterson, Tawney, RN RN tm6
[2024-02-15 12:59] VITALS: TEMP 96.8
[2024-02-15 13:02] VITALS: BP 145/96; O2SAT 100
== END 2024-02-15 12:51 | disposition home or self-care (01) ==
LOC: ER 12:22
DX: H10.31 Unspecified acute conjunctivitis, right eye (principal); H16.001 Unspecified corneal ulcer, right eye; F17.210 Nicotine dependence, cigarettes, uncomplicated
CPT/HCPCS: 99283

== ENCOUNTER 2024-03-19 11:59 | Emergency (ER) | payer OTHER ==
--- OUTSIDE RECORDS SUMMARY | 2024-03-19 12:02 | XMS REPORT | Continuity of Care Document ---
Author Name Unknown Address [address] [facility] [place] [address] [facility] Address [address] [facility] [address] [place] [address] Care Team Providers Care Window Draper Name Role Phone PCP, PATIENT DOES NOT HAVE A Primary Care Physic jhon Unavailable Campaigns, Generic Provider Attending Clinician Unavailable Marco HERNANDEZ Attending Clinician Unavailable Marco HERNANDEZ Attending Clinician Unavailable Payers Payer Name Policy Type Policy Number Effective Date Expirati on Date Source Problems Condition Name Condition Details Condition Category Status Onset Date Resolution Date Last Treatment Date Treating Clinician Comments Source Other chronic pain Other chronic pain Problem Active [facility] Fibromyalg ia Fibromyalg ia Problem Active [facility] Low back pain Low back pain Problem Active [facility] Hematochez ia Hematochez ia Diagnosis Active [facility] Chronic GERD Chronic GERD Diagnosis Active [facility] Bilateral leg paresthesi a Bilateral leg paresthesi a Diagnosis Active [facility] Urinary incontinen ce, unspecifie d type Urinary incontinen ce, unspecifie d type Diagnosis Active [facility] Allergies, Adverse Reactions, Alerts Allergy Name Allergy Type Status Severity Reaction(s) Onset Date Inactive Date Treating Clinician Comments Source NO KNOWN ALLERGIE S Drug Class Active [facility] Social History Social Habit Start Date Stop Date Quantity Comments Source Sexual orientation U [facility] Sex assigned at 1970 00:00:00 1970 00:00:00 [facility] Smoking Status Start Date Stop Date Source Tobacco smoking consumption unknown [facility] Medications Ordered Medication Name Filled Medication Name Start Date Stop Date Current Medication? Ordering Clinician Indication Dosage Frequency Signature (SIG) Comments Components Source ketorolac (TORADOL) tablet 10 mg 12-27 01:45: 00 12-27 00:57 :00 No 10mg 10 mg, Oral, ONCE, 1 dose, On Mon12/27/23 at 2045, Routine [facility] erythromyci n (ILOTYCIN) 5 mg/gram (0.5 %) ophthalmic ointment 0.5 Inch 12-27 00:45: 00 12-27 00:51 :00 No .5[in_u s] 0.5 Inch, Right Eye, ONCE, 1 dose, On Mon12/27/23 at 1945, MAGNO [facility] tetracaine (PONTOCAINE ) 0.5 % ophthalmic drops 2 Drop 12-26 22:45: 00 12-26 22:45 :00 No 2[drp] 2 Drop, Right Eye, ONCE, 1 dose, On Mon12/27/23 at 1745, Routine [facility] erythromyci n 5 mg/gram (0.5 %) ophthalmic ointment 12-26 00:00: 00 Yes [id number] .5[in_u s] Place 0.5 Inches in both eyes 4 (four) times daily. Continue until you follow up with eye doctor. [facility] Gabapentin Gabapentin 2017-12-05 00:00: 00 Yes Fernando Blanchard 1 capsule [facility] Multivitami n Multivitami n Yes Fernando Blanchard not defined [facility] BC Headache BC Headache Yes Fernando Blanchard not defined [facility] Vital Signs Vital Name Observation Time Observation Value Comments S ource Systolic blood pressure 2023-12-27 21:40:00 142 mm[Hg] [facility] Diastolic blood pressure 2023-12-27 21:40:00 107 mm[Hg] [facility] Heart rate 2023-12-27 21:40:00 95 /min [facility] Body temperature 2023-12-27 21:40:00 36.56 Tati [facility] Respiratory rate 2023-12-27 21:40:00 17 /min [facility] Body height 2023-12-27 21:40:[address] [facility] Body weight 2023-12-27 21:40:[address] [facility] BMI 2023-12-27 21:40:00 25.61 kg/m2 [facility] Oxygen saturation in Arterial blood by Pulse oximetry 2023-12-27 21:40:00 100 /min [place] [facility] Encounters Start Date/Time End Date/Time Encounter Type Admission Type Attending Clinicians Care Facility Care Department Encounter ID Source 2024-01-03 00:00:00 2024-01-03 11:07:01 Letter (Out) Campaigns, Generic Provider [facility] [id number] [facility] 2023-12-27 16:41:00 2023-12-27 20:10:00 Emergency X Marco HERNANDEZ K [facility] ERT [id number] [facility] 2023-12-27 16:41:00 2023-12-27 20:10:00 Emergency Marco Hernandez [facility] [id number] [facility] 2017-12-05 15:15:00 2017-12-05 15:15:00 Outpatient [facility] [id number] [facility] Notes Date/Time Note Provider Source 2023-12-27 [...] in no apparent distress, Angelia Yoo RN [facility] 2023-12-27 16:32:00 Patient states: "My right eye's been swelling and hurting since 4-5 days now. Nontraumatic, I just woke up one day rubbing it. It's got my whole head hurting. It's been pouring clear fluid." [facility]
[2024-03-19] MEDS ORDERED: TETRACAINE HCL 0.5% 4ML OPTH ONE (12:50)
[2024-03-19] MEDS ORDERED: FLUORESCEIN SODIUM 1 MG/WRAP ONE (12:52)
[2024-03-19] MEDS ORDERED: LEVALBUTEROL 1.25 MG/3 ML NEB ONE (13:46)
--- NOTE | 2024-03-19 14:21 | ER ---
Nurse's Notes [facility] Name: Edna Hoang Age: 53 yrs Sex: Female : 1970 Arrival Date: 03/19/2024 Time: 11:59 Bed DX4 Private MD: Diagnosis: Perforated corneal ulcer, right eye;Low vision, one eye, unspecified eye Presentation: 03/19 12:39 Chief complaint: Patient states: ongoing for the last 6 months, but pain is worse tm6 today. Right eye pain, migraine, hurts all the way down to my throat. It has never hurt like this before. When I've come here before they have given me antibiotics for my eye. Nasal drainage. Coronavirus screen: Vaccine status: Patient reports being unvaccinated. Ebola Screen: Patient negative for fever greater than or equal to 101.5 degrees Fahrenheit, and additional compatible Ebola Virus Disease symptoms Patient denies exposure to infectious person. Patient denies travel to an Ebola-affected area in the 21 days before illness onset. No symptoms or risks identified at this time. Mechanism of Injury: No Mechanism of Injury. Initial Sepsis Screen: Does the patient meet any 2 criteria? No. Patient's initial sepsis screen is negative. Does the patient have a suspected source of infection? No. Patient's initial sepsis screen is negative. Risk Assessment: Do you want to hurt yourself or someone else? Patient reports no desire to harm self or others. Onset of symptoms was March 19, 2024. 12:39 Method Of Arrival: Wheelchair tm6 12:39 Acuity: YANETH 3 tm6 Triage Assessment: 12:41 General: Appears distressed, uncomfortable, Behavior is cooperative. Pain: Complains of tm6 pain in right eye, head, throat Pain currently is 10 out of 10 on a pain scale. EENT: Eyes pain in right eye. Throat pain in throat. Reports nasal discharge. Neuro: Level of Consciousness is awake, alert, obeys commands, Oriented to person, place, time, situation, Reports headache. Cardiovascular: Patient's skin is warm and dry. Respiratory: Airway is patent Respiratory effort is even, unlabored, Respiratory pattern is regular, symmetrical. GI: No signs and/or symptoms were reported involving the gastrointestinal system. Abdomen is flat, non-distended. : No signs and/or symptoms were reported regarding the genitourinary system. Derm: No signs and/or symptoms reported regarding the dermatologic system. Musculoskeletal: No signs and/or symptoms reported regarding the musculoskeletal system. 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 - Infectious Disease History:: Denies. - Social history:: Smoking status: Patient reports the use of cigarette tobacco products, smokes one pack cigarettes per day. Screenin:00 [facility] ED Fall Risk Assessment (Adult) History of falling in the last 3 months, iw including since admission No falls in past 3 months (0 pts) Confusion or Disorientation No (0 pts) Intoxicated or Sedated No (0 pts) Impaired Gait No (0 pts) Mobility Assist Device Used No (0 pt) Altered Elimination No (0 pt) Score/Fall Risk Level 0 - 2 = Low Risk Oriented to surroundings. Abuse screen: Denies threats or abuse. Denies injuries from another. Nutritional screening: No deficits noted. Tuberculosis screening: No symptoms or risk factors identified. Assessment: 12:52 General: Appears Behavior is pt was screaming in the lobby, brought back to chair area iw , pt states "I just want some antibiotics for my eye!". Vital Signs: 12:38 BP 161 / 110; Pulse 80; Resp 19; Temp 96.7(TE); Pulse Ox 100% on R/A; MAP 126 mmHg; tm6 Weight 63.5 kg; Height 5 ft. 2 in. ; Pain 10/10; 12:38 Body Mass Index 25.61 (63.50 kg, 157.48 cm) tm6 12:38 Pain Scale: Adult tm6 ED Course: 12:00 Patient arrived in ED. im 12:41 Triage completed. tm6 12:41 Arm band placed on left wrist. tm6 12:48 Kell Renee MD is Attending Physician. gb1 14:19 Rehan Lanier MD is Referral Physician. gb1 14:52 No provider procedures requiring assistance completed. Patient did not have IV access iw during this emergency room visit. 14:54 Codi Jaffe, RN is Primary Nurse. iw Administered Medications: 18:00 Drug: Tetracaine Ophthalmic Drops 0.5 % 1 drops Ophthalmic once Route: Ophthalmic; iw Site: right eye; Outcome: 14:21 Discharge ordered by MD. priest 14:53 Discharged to home via wheelchair, iw 14:53 Condition: good 14:53 Discharge instructions given to patient, Instructed on discharge instructions, follow up and referral plans. medication usage, Demonstrated understanding of instructions, follow-up care, medications, 14:54 Patient left the ED. iw Signatures: Codi Jaffe, RN RN Malena Carrizales Gina, MD MD gb1 Pat Alston RN RN tm6 Corrections: (The following items were deleted from the chart) 12:41 12:39 Chief complaint: Patient states: ongoing for the last 6 months, but pain is worse tm6 today. Right eye pain, migraine, hurts all the way down to my throat. It has never hurt like this before. When I've come here before they have given me antibiotics for my eye tm6
--- NOTE | 2024-03-19 14:21 | EDPHYS ---
Physician Documentation [facility] Name: Edna Hoang Age: 53 yrs Sex: Female : 1970 Arrival Date: 03/19/2024 Time: 11:59 Bed DX4 Private MD: ED Physician Kell Renee HPI: 03/19 14:23 This 53 yrs old Female presents to ER via Wheelchair with complaints of Eye gb1 Pain, Eye Problem. 14:23 Ms. Soto is a 53-year-old female that reports right eye pain for over a year. She gb1 states to me that she put a contact lens in a year ago and then had difficulty getting it out and subsequently retrieved a month later. Through that time she noticed a decrease in her vision and right eye pain and frequent infections. She has been to the ER 4-5 times over the last 2 weeks trying to get relief from right eye pain. Today the eyelid is swollen due to she has been itching it overnight and her sleep. She also reports yellow-green drainage from the eye as well. She states that she cannot see anything but shadows from that right eye. That visions been like that for months to over a year. Patient also reports to me that she uses methamphetamine sometimes.. 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 - Infectious Disease History:: Denies. - Social history:: Smoking status: Patient reports the use of cigarette tobacco products, smokes one pack cigarettes per day. Exam: 14:23 Visual Acuity: The patient's visual acuity was not tested, gb1 14:23 Constitutional: This is a well developed, well nourished patient who is awake, alert, and in no acute distress. Head/Face: Normocephalic, atraumatic. Eyes: Patient does have an opaque area over the right cornea that likely obstructs her vision. She also has an injected conjunctiva as well as chemosis of the upper lid. It is painful for the patient to open her eyes but she does get relief with tetracaine drops. ENT: Nares patent. No nasal discharge, no septal abnormalities noted. Tympanic membranes are normal and external auditory canals are clear. Oropharynx with no redness, swelling, or masses, exudates, or evidence of obstruction, uvula midline. Mucous membranes moist. Neck: Trachea midline, no thyromegaly or masses palpated, and no cervical lymphadenopathy. Supple, full range of motion without nuchal rigidity, or vertebral point tenderness. No Meningismus. Vital Signs: 12:38 BP 161 / 110; Pulse 80; Resp 19; Temp 96.7(TE); Pulse Ox 100% on R/A; MAP 126 mmHg; tm6 Weight 63.5 kg; Height 5 ft. 2 in. ; Pain 10/10; 12:38 Body Mass Index 25.61 (63.50 kg, 157.48 cm) tm6 12:38 Pain Scale: Adult tm6 MDM: 12:50 Patient medically screened. gb1 14:23 Data reviewed: vital signs, nurses notes. gb1 14:23 ED course: 53-year-old female with a concern for a large corneal ulcer on the right gb1 side with concomitantly a bacterial conjunctivitis. Patient has very low visual acuity of that right eye only seeing shadows. I doubt this time any signs of a fracture or bit or any signs of trauma other than to the eye as of recently. This for this problem has been progressive and patient's eyesight is been deteriorating for over a year. I have discussed the case by phone with Rehan Driver who will see the patient in his office at [address] tomorrow at 10:30 AM. The patient has recently been on antibiotics and I will not prescribe anything prior to the patient being evaluated by the associate web developer tomorrow. Patient is compliant with this plan of care for discharge. 03/19 12:53 Order name: Eye Tray; Complete Time: 12:59 gb1 03/19 12:53 Order name: Fluoresene Opth strip; Complete Time: 12:59 gb1 Administered Medications: 18:00 Drug: Tetracaine Ophthalmic Drops 0.5 % 1 drops Ophthalmic once Route: Ophthalmic; iw Site: right eye; Disposition Summary: 03/19/24 14:21 Discharge Ordered Notes: Location: Home gb1 Problem: chronic gb1 Symptoms: have worsened gb1 Condition: Stable gb1 Diagnosis - Perforated corneal ulcer, right eye gb1 - Low vision, one eye, unspecified eye gb1 Followup: gb1 - With: Rehan Lanier MD - When: Tomorrow - Reason: Further diagnostic work-up, Go see Dr. Lanier at his office which is the address is [address] [place] [address] Way at 10:30 AM tomorrow March 20. Discharge Instructions: - Discharge Summary Sheet gb1 - Corneal Ulcer gb1 - Visual Disturbances gb1 Forms: - Medication Reconciliation Form gb1 - Antibiotic Education gb1 - Prescription Opioid Use gb1 - Patient Portal Instructions gb1 - Leadership Thank You Letter gb1 Signatures: Codi Jaffe, RN RN iw Kell Renee MD MD gb1 Pat Alston RN RN tm6
== END 2024-03-19 14:54 | disposition home or self-care (01) ==
LOC: ER 11:59
DX: H16.07 Perforated corneal ulcer (principal); H54.50 Low vision, one eye, unspecified eye
CPT/HCPCS: 99283; J7614